=== PATIENT | female | born 1995 | race Caucasian/White ===

== ENCOUNTER 2021-10-10 15:09 | Inpatient (IN) ==
[2021-10-10] MEDS ORDERED: PIPERACILL/TAZOBAC CONSULT ACTIVE PRN (15:48)
[2021-10-10] MEDS ORDERED: SODIUM CHLORIDE 0.9% 1000ML 2,000 ML IV ONE (15:48)
[2021-10-10] MEDS ORDERED: PIPERACILLIN/TAZOBACTAM 4.5 GM/120 ML BAG IV ONE (15:48)
--- NOTE | 2021-10-10 15:51 | Emergency Department Note ---
Impression & Plan Sepsis, Pyosalpinx, Tachycardia, Abdominal abscess ED Provider Note NAME: ECHO MILLER AGE: 26 SEX: F : 1995 ARRIVES VIA: Walk-In INFORMANT: Patient ED PROVIDER(S): Dima Salazar DO CHIEF COMPLAINT: abdominal pain HPI: Patient is a 26-year-old female who presents the ER for worsening lower abdominal pain. She is postop from ovarian cyst removal at [place] about 4 weeks ago. She was seen by 2 weeks following this and found to have an abscess about 5 cm. She was placed on Zosyn and discharged on Augmentin. She finished up Augmentin 2 days ago. She started with fevers of 102 today as well as shaking chills. She denies any headache or change in vision. No chest pain or shortness of breath. No nausea vomiting or diarrhea. No dysuria urgency or frequency. No other exacerbating or remitting factors. Pain has been constant since the surgery but slightly worsened in the past 24 hours. Is an 8-9 out of 10. She does not want anything for pain. ROS: See above HPI for pertinent positives & negatives. A total of 10 systems reviewed and were otherwise negative. PAST MEDICAL HISTORY:See Below PAST SURGICAL HISTORY:See Below FAMILY HISTORY:See Below SOCIAL HISTORY:See Below HOME MEDICATIONS:See Below ALLERGIES:See Below VITALS:See Below PHYSICAL EXAMINATION: GENERAL: Sitting up in bed, alert, well appearing, well nourished, no distress, non-toxic EYE EXAM: normal conjunctiva. OROPHARYNX: no exudate, no erythema, lips, buccal mucosa, and tongue normal and mucous membranes are moist NECK: supple, no nuchal rigidity, no adenopathy, non-tender LUNGS: Clear to auscultation. Normal chest wall mechanics HEART: no murmurs, S1 normal and S2 normal ABDOMEN: abdomen soft, mild diffuse tenderness in the lower belly, port sites are clean and dry with exception of right lateral with a small protruding stitch normo-active bowel sounds, no masses, no rebound or guarding. UPPER EXTREMITIES: upper extremities are grossly normal. LOWER EXTREMITIES: No pitting edema. Cervical bilateral NEURO EXAM: Normal sensorium, cranial nerves II-XII grossly intact, normal speech, no gross weakness of arms, no gross weakness of legs. MEDICAL DECISION MAKING: Patient is a 26-year-old female with a past medical history of surgery 4 weeks ago who had a complication with an abscess which was 5 cm. Patient was discha rged on antibiotics. She finished antibiotics several days ago and fevers have recurred with worsening pain. IV was established blood was obtained. She was found to be tachycardic. Labs showed no significant leukocytosis or anemia. INR was unremarkable. BMP with a creatinine of 0.56. Lactate was normal. Troponin was negative. hCG was negative. UA was clean. COVID was negative. CT abdomen pelvis suggested a 3 cm abscess with questionable ovarian cyst. Discussed with who offered to evaluate the patient if she did not want to be transferred for IR. Patient would prefer not to be transferred to [place] or go to [facility] can stay here and be treated and if needed she was agreeable to an open surgery versus laparoscopic. Patient was obtained at bedside. She is given IV Zosyn vancomycin and 3 L IV fluids. She was admitted to the hospitalist as she was tachycardic with an obvious infection with CERTIFIED PEDIATRIC NURSE PRACTITIONER to consult. Triage Nursing notes reviewed. Limited review of prior medical records performed Vital Signs: reviewed and remarkable for no significant abnormalities Differential diagnosis: Differential diagnoses includes but is not limited to gastritis, peptic ulcer disease, GERD, gallbladder disease, pancreatitis, small bowel obstruction, acute coronary syndrome, pericarditis, ischemic bowel, irritable bowel disease, irritable bowel syndrome, appendicitis, diverticulitis, malignancy, hernia, urinary tract infection, torsion, /ectopic (if female), perforation, trauma, infectious. ER treatment provided: See below Diagnostics interpreted by me: ECG: Sinus rhythm rate of 114 Normal axis No PVCs T wave inversion V1 V2 QTC 446 Cardiac Monitoring: An order was placed for continuous cardiac monitoring. The monitor shows a rate of 122 with sinus rhythm. Laboratory studies: As stated above and show below. Imaging studies: CT abdomen pelvis as discussed above Ultrasound shows questionable abscess Consultation(s): Discussed with Dr. Basurto and hospitalist for further evaluation Procedures: none Critical Care: I have personally spent 32 minutes of critical care time in the direct management of this patient. This includes bedside care, interpretation of diagnostic studies, and testing, discussion with consultants, patient, and family members, and other required patient management activities. This 32 minutes is in excess of all separately billable procedures. Past Med/Surg History Medical History (Updated 10/10/21 @ 21:26 by Dima Salazar, DO) Migraine Surgical History (Updated 10/10/21 @ 19:45 by Ingrid Bryant PA-C) H/O ovarian cystectomy Hx of adenoidectomy Hx of tonsillectomy Family History (Updated 10/10/21 @ 19:46 by Ingrid Bryant PA-C) Denies family history of Diabetes Dyslipidemia Heart disease Lung disease Cancer Hypertension Social History (Updated 10/10/21 @ 19:46 by Ingrid Bryant PA-C) Smoking Status: Never smoker Second Hand Exposure: Yes; Do You Dip or Chew Tobacco: No; Hx Alcohol Use: No Hx Substance Use: No Current Living Situation: Significant Other current occupational status: employed Feels Safe at Home: Yes Allergies Allergies Allergy/AdvReac Type Severity Reaction Status Date / Time latex Allergy Intermediate Rash Verified 10/10/21 16:24 SURGICAL GLUE Allergy Intermediate RASH, Uncoded 10/10/21 16:24 BLISTERED SKIN Home Meds Home Medications Medication Instructions Recorded Confirmed acetaminophen 500 mg tablet 1,000 mg PO DIRECTED PRN 10/10/21 10/10/21 (Tylenol Extra Strength) Results & Data (ED) Vital Signs Vital Signs - 24 hr 10/10/21 15:12 10/10/21 15:46 10/10/21 15:55 Temperature 36.4 C L Temperature Source Temporal Artery Scan Pulse Rate 137 H 98 H 122 H Pulse Rate [Apical] 104 H Pulse Rate from SpO2 Sensor Pulse Rhythm [Apical] Regular Respiratory Rate 18 12 15 Respiratory Effort / Characteristics Non-Labored Spontaneous Non-Labored Respiratory Depth Normal Normal Respiratory Pattern Regular Blood Pressure 155/99 H Blood Pressure [Left Arm] 141/97 H Blood Pressure Mean 117 Blood Pressure Mean [Left Arm] 111 Blood Pressure Position Sitting Pulse Oximetry 97 99 Oxygen Delivery Method Room Air Room Air Sepsis Recent Fever Within 48 Hours No Sepsis New/Unexplained Change in Mental Status No Sepsis Action Taken by Nursing No Action Required 10/10/21 16:00 10/10/21 16:01 10/10/21 16:02 Temperature Temperature Source Pulse Rate 115 H 115 H Pulse Rate [Apical] 110 H Pulse Rate from SpO2 Sensor Pulse Rhythm [Apical] Respiratory Rate 14 12 13 Respiratory Effort / Characteristics Non-Labored Spontaneous Respiratory Depth Respiratory Pattern Blood Pressure 141/97 H Blood Pressure [Left Arm] 141/97 H Blood Pressure Mean 111 Blood Pressure Mean [Left Arm] 111 Blood Pressure Position Pulse Oximetry 98 Oxygen Delivery Method Sepsis Recent Fever Within 48 Hours Sepsis New/Unexplained Change in Mental Status Sepsis Action Taken by Nursing 10/10/21 16:15 10/10/21 16:27 10/10/21 16:30 Temperature Temperature Source Pulse Rate 127 H 107 H 112 H Pulse Rate [Apical] 102 H 112 H Pulse Rate from SpO2 Sensor 123 H 110 H 113 H Pulse Rhythm [Apical] Respiratory Rate 17 15 16 Respiratory Effort / Characteristics Non-Labored Respiratory Depth Respiratory Pattern Blood Pressure 135/96 143/97 H Blood Pressure [Left Arm] 135/96 147/113 H Blood Pressure Mean 109 112 Blood Pressure Mean [Left Arm] 109 124 Blood Pressure Position Pulse Oximetry 100 100 100 Oxygen Delivery Method Room Air Sepsis Recent Fever Within 48 Hours Sepsis New/Unexplained Change in Mental Status Sepsis Action Taken by Nursing 10/10/21 16:45 10/10/21 16:54 10/10/21 17:00 Temperature Temperature Source Pulse Rate 112 H Pulse Rate [Apical] 110 H 115 H Pulse Rate from SpO2 Sensor 113 H Pulse Rhythm [Apical] Regular Respiratory Rate 20 22 Respiratory Effort / Characteristics Non-Labored Spontaneous Respiratory Depth Normal Respiratory Pattern Blood Pressure 135/91 124/90 Blood Pressure [Left Arm] 147/113 H 147/113 H Blood Pressure Mean 105 101 Blood Pressure Mean [Left Arm] 124 124 Blood Pressure Position Pulse Oximetry 100 100 Oxygen Delivery Method Room Air Room Air Sepsis Recent Fever Within 48 Hours Sepsis New/Unexplained Change in Mental Status Sepsis Action Taken by Nursing 10/10/21 17:15 10/10/21 17:30 10/10/21 18:00 Temperature Temperature Source Pulse Rate 122 H 110 H 107 H Pulse Rate [Apical] 100 H Pulse Rate from SpO2 Sensor 127 H 113 H 109 H Pulse Rhythm [Apical] Respiratory Rate 10 L 19 10 L Respiratory Effort / Characteristics Non-Labored Non-Labored Spontaneous Respiratory Depth Respiratory Pattern Blood Pressure 147/113 H 143/91 H 139/79 Blood Pressure [Left Arm] 120/100 Blood Pressure Mean 124 108 99 Blood Pressure Mean [Left Arm] 106 Blood Pressure Position Pulse Oximetry 100 100 100 Oxygen Delivery Method Room Air Room Air Sepsis Recent Fever Within 48 Hours Sepsis New/Unexplained Change in Mental Status Sepsis Action Taken by Nursing 10/10/21 18:15 10/10/21 18:30 10/10/21 18:47 Temperature Temperature Source Pulse Rate 116 H 110 H Pulse Rate [Apical] Pulse Rate from SpO2 Sensor 116 H 110 H Pulse Rhythm [Apical] Respiratory Rate 15 19 17 Respiratory Effort / Characteristics Non-Labored Spontaneous Respiratory Depth Respiratory Pattern Blood Pressure 130/94 Blood Pressure [Left Arm] Blood Pressure Mean 106 Blood Pressure Mean [Left Arm] Blood Pressure Position Pulse Oximetry 99 98 99 Oxygen Delivery Method Room Air Sepsis Recent Fever Within 48 Hours Sepsis New/Unexplained Change in Mental Status Sepsis Action Taken by Nursing Laboratory Data Result diagrams: 10/10/21 15:59 10/10/21 15:59 Lab Results 10/10/21 10/10/21 10/10/21 Range/Units 15:46 15:46 15:59 WBC 10.53 (4.8-10.8) K/uL RBC 4.75 (4.2-5.4) M/uL Hgb 13.3 (12.0-16.0) g/dL POC Hgb (12.0-16.0) g/dl Hct 40.8 (37-47) % POC Hct (37-47) % MCV 85.9 (80-100) fL MCH 28.0 (25-34) pg MCHC 32.6 (32-36) g/dL RDW Std Deviation 45.2 (36.4-46.3) fL RDW Coeff of Denys 14.5 (11.5-14.5) % Plt Count 384 (130-400) K/uL MPV 9.0 (7.4-10.4) fL Immature Gran % (Auto) 0.3 % Neut % (Auto) 64.5 % Lymph % (Auto) 21.1 % [facility] % (Auto) 5.8 % Eos % (Auto) 7.9 % Baso % (Auto) 0.4 % Neut # (Auto) 6.80 H (1.4-6.5) K/uL Lymph # (Auto) 2.22 (1.2-3.4) K/uL [facility] # (Auto) 0.61 H (0.11-0.59) K/uL Eos # (Auto) 0.83 H (0-0.5) K/uL Baso # (Auto) 0.04 (0-0.2) K/uL Immature Gran # (Auto) 0.03 H (0.00-0.02) K/uL PT (9.0-12.0) Seconds INR (0.9-1.1) APTT (21.0-31.0) Seconds PTT Ratio POC Sodium (135-144) mmol/L Sodium (136-145) mmol/L POC Potassium (3.3-5.0) mmol/L Potassium (3.5-5.1) mmol/L POC Chloride (101-112) mmol/L Chloride (98-107) mmol/L Carbon Dioxide (21-32) mmol/L POC Total CO2 (24-31) mmol/L Anion Gap (3-11) POC Anion Gap (16-25) mmol/L POC BUN (7-18) mg/dl BUN (6-23) mg/dl Creatinine (0.6-1.2) mg/dl POC Creatinine (0.6-1.3) mg/dl Est Cr Clr Drug Dosing ml/min Est GFR ( Amer) ml/min Est GFR (Non-Af Amer) ml/min BUN/Creatinine Ratio (10-20) Glucose (70-99(Fasting)) mg/dl POC Glucose (other) (70-99) mg/dl Lactate (0.4-2.0) mmol/L Calcium (8.5-10.1) mg/dl POC Ioniz Calcium Tyrel (1.12-1.32) mmol/l Magnesium (1.7-2.4) mg/dl Total Bilirubin (0.2-1.0) mg/dl AST (13-39) U/L ALT (7-52) U/L Alkaline Phosphatase (34-104) U/L Troponin I High Sens (0-14) pg/ml Total Protein (6.0-8.3) gm/dl Albumin (3.4-5.0) gm/dl Globulin (2.5-4.0) gm/dl Albumin/Globulin Ratio (0.9-2) HCG, Qual (Negative) Urine Color Yellow Urine Appearance Clear (Clear) Urine pH 6.5 (4.5-7.5) Ur Specific Severance 1.007 (1.000-1.030) Urine Protein Negative (Negative) Urine Glucose (UA) Negative (Negative) Urine Ketones Negative (Negative) Urine Blood Trace H (Negative) Urine Nitrite Negative (Negative) Urine Bilirubin Negative (Negative) Urine Urobilinogen Negative (Negative) Ur Leukocyte Esterase Trace H (Negative) Urine WBC (Auto) 1-5 (0-5) /hpf Urine RBC (Auto) 0-4 (0-4) /hpf U Hyaline Cast (Auto) 1-5 (0-5) /lpf U Epithel Cells (Auto) >30 H (0-5) /lpf Urine Bacteria (Auto) Negative (Negative) Urine Test Cancelled SARS-CoV-2, RNA, NAAT (NEGATIVE) 10/10/21 10/10/21 10/10/21 Range/Units 15:59 15:59 16:15 WBC (4.8-10.8) K/uL RBC (4.2-5.4) M/uL Hgb (12.0-16.0) g/dL POC Hgb (12.0-16.0) g/dl Hct (37-47) % POC Hct (37-47) % MCV (80-100) fL MCH (25-34) pg MCHC (32-36) g/dL RDW Std Deviation (36.4-46.3) fL RDW Coeff of Denys (11.5-14.5) % Plt Count (130-400) K/uL MPV (7.4-10.4) fL Immature Gran % (Auto) % Neut % (Auto) % Lymph % (Auto) % [facility] % (Auto) % Eos % (Auto) % Baso % (Auto) % Neut # (Auto) (1.4-6.5) K/uL Lymph # (Auto) (1.2-3.4) K/uL [facility] # (Auto) (0.11-0.59) K/uL Eos # (Auto) (0-0.5) K/uL Baso # (Auto) (0-0.2) K/uL Immature Gran # (Auto) (0.00-0.02) K/uL PT 10.3 (9.0-12.0) Seconds INR 1.0 (0.9-1.1) APTT 25.3 (21.0-31.0) Seconds PTT Ratio 0.9 POC Sodium (135-144) mmol/L Sodium 138 (136-145) mmol/L POC Potassium (3.3-5.0) mmol/L Potassium 3.6 (3.5-5.1) mmol/L POC Chloride (101-112) mmol/L Chloride 105 (98-107) mmol/L Carbon Dioxide 24 (21-32) mmol/L POC Total CO2 (24-31) mmol/L Anion Gap 9 (3-11) POC Anion Gap (16-25) mmol/L POC BUN (7-18) mg/dl BUN 7 (6-23) mg/dl Creatinine 0.56 L (0.6-1.2) mg/dl POC Creatinine (0.6-1.3) mg/dl Est Cr Clr Drug Dosing 143.8 ml/min Est GFR ( Amer) > 150.0 ml/min Est GFR (Non-Af Amer) 129.6 ml/min BUN/Creatinine Ratio 12.5 (10-20) Glucose 78 (70-99(Fasting)) mg/dl POC Glucose (other) (70-99) mg/dl Lactate 1.1 (0.4-2.0) mmol/L Calcium 9.6 (8.5-10.1) mg/dl POC Ioniz Calcium Tyrel (1.12-1.32) mmol/l Magnesium 1.8 (1.7-2.4) mg/dl Total Bilirubin 0.4 (0.2-1.0) mg/dl AST 22 (13-39) U/L ALT 36 (7-52) U/L Alkaline Phosphatase 74 (34-104) U/L Troponin I High Sens 4.0 (0-14) pg/ml Total Protein 7.3 (6.0-8.3) gm/dl Albumin 4.5 (3.4-5.0) gm/dl Globulin 2.8 (2.5-4.0) gm/dl Albumin/Globulin Ratio 1.6 (0.9-2) HCG, Qual (Negative) Urine Color Urine Appearance (Clear) Urine pH (4.5-7.5) Ur Specific Severance (1.000-1.030) Urine Protein (Negative) Urine Glucose (UA) (Negative) Urine Ketones (Negative) Urine Blood (Negative) Urine Nitrite (Negative) Urine Bilirubin (Negative) Urine Urobilinogen (Negative) Ur Leukocyte Esterase (Negative) Urine WBC (Auto) (0-5) /hpf Urine RBC (Auto) (0-4) /hpf U Hyaline Cast (Auto) (0-5) /lpf U Epithel Cells (Auto) (0-5) /lpf Urine Bacteria (Auto) (Negative) Urine Test SARS-CoV-2, RNA, NAAT (NEGATIVE) 10/10/21 10/10/21 10/10/21 Range/Units 16:16 16:24 16:56 WBC (4.8-10.8) K/uL RBC (4.2-5.4) M/uL Hgb (12.0-16.0) g/dL POC Hgb 12.9 (12.0-16.0) g/dl Hct (37-47) % POC Hct 38 (37-47) % MCV (80-100) fL MCH (25-34) pg MCHC (32-36) g/dL RDW Std Deviation (36.4-46.3) fL RDW Coeff of Denys (11.5-14.5) % Plt Count (130-400) K/uL MPV (7.4-10.4) fL Immature Gran % (Auto) % Neut % (Auto) % Lymph % (Auto) % [facility] % (Auto) % Eos % (Auto) % Baso % (Auto) % Neut # (Auto) (1.4-6.5) K/uL Lymph # (Auto) (1.2-3.4) K/uL [facility] # (Auto) (0.11-0.59) K/uL Eos # (Auto) (0-0.5) K/uL Baso # (Auto) (0-0.2) K/uL Immature Gran # (Auto) (0.00-0.02) K/uL PT (9.0-12.0) Seconds INR (0.9-1.1) APTT (21.0-31.0) Seconds PTT Ratio POC Sodium 140 (135-144) mmol/L Sodium (136-145) mmol/L POC Potassium 3.5 (3.3-5.0) mmol/L Potassium (3.5-5.1) mmol/L POC Chloride 105 (101-112) mmol/L Chloride (98-107) mmol/L Carbon Dioxide (21-32) mmol/L POC Total CO2 22 L (24-31) mmol/L Anion Gap (3-11) POC Anion Gap 17.0 (16-25) mmol/L POC BUN 6 L (7-18) mg/dl BUN (6-23) mg/dl Creatinine (0.6-1.2) mg/dl POC Creatinine 0.5 L (0.6-1.3) mg/dl Est Cr Clr Drug Dosing ml/min Est GFR ( Amer) ml/min Est GFR (Non-Af Amer) ml/min BUN/Creatinine Ratio (10-20) Glucose (70-99(Fasting)) mg/dl POC Glucose (other) 81 (70-99) mg/dl Lactate (0.4-2.0) mmol/L Calcium (8.5-10.1) mg/dl POC Ioniz Calcium Tyrel 1.20 (1.12-1.32) mmol/l Magnesium (1.7-2.4) mg/dl Total Bilirubin (0.2-1.0) mg/dl AST (13-39) U/L ALT (7-52) U/L Alkaline Phosphatase (34-104) U/L Troponin I High Sens (0-14) pg/ml Total Protein (6.0-8.3) gm/dl Albumin (3.4-5.0) gm/dl Globulin (2.5-4.0) gm/dl Albumin/Globulin Ratio (0.9-2) HCG, Qual Negative (Negative) Urine Color Urine Appearance (Clear) Urine pH (4.5-7.5) Ur Specific Severance (1.000-1.030) Urine Protein (Negative) Urine Glucose (UA) (Negative) Urine Ketones (Negative) Urine Blood (Negative) Urine Nitrite (Negative) Urine Bilirubin (Negative) Urine Urobilinogen (Negative) Ur Leukocyte Esterase (Negative) Urine WBC (Auto) (0-5) /hpf Urine RBC (Auto) (0-4) /hpf U Hyaline Cast (Auto) (0-5) /lpf U Epithel Cells (Auto) (0-5) /lpf Urine Bacteria (Auto) (Negative) Urine Test SARS-CoV-2, RNA, NAAT NEGATIVE (NEGATIVE) Administered Medications Discontinued Medications Sodium Chloride (Nss 1000ml) 2,000 mls @ 999 mls/hr IV .Q2H1M ONE Stop: 10/10/21 17:48 Last Admin: 10/10/21 16:28 Dose: 999 mls/hr Documented by: [id number] Piperacillin Sod/Tazobactam Sod (Zosyn) 4.5 gm in 120 mls @ 240 mls/hr IV NOW ONE Stop: 10/10/21 16:17 Last Infusion: 10/10/21 17:54 Dose: 0 mls/hr Documented by: [id number] Admin: 10/10/21 17:11 Dose: 240 mls/hr Documented by: [id number] Vancomycin HCl 1,250 mg/ (Sodium Chloride) 525 mls @ 200 mls/hr IV NOW ONE Stop: 10/10/21 20:53 Last Admin: 10/10/21 18:50 Dose: 200 mls/hr Documented by: [id number] Ioversol (Optiray 320 100ml) 94 ml IV ONCE ONE Stop: 10/10/21 16:47 Last Admin: 10/10/21 16:47 Dose: 94 ml Documented by: [id number] Imaging Data Radiologist's Impression: Abdomen/Pelvis CT 10/10/21 15:[address] WITH IV CONTRAST CT DOSE: 419.04 mGy.cm HISTORY: Acute fever with recent pelvic surgery. post op ovarian cyst removal febrile worsening omid TECHNIQUE: Multiaxial CT images of the abdomen and pelvis were performed following the IV administration of 94 cc of Optiray, A dose lowering technique was utilized adhering to the principles of ALARA. COMPARISON STUDY: None. FINDINGS: There is no acute process identified within the imaged lower chest. No pneumatosis or pneumoperitoneum identified. Unremarkable spleen, pancreas, adrenal glands, gallbladder and liver. There is patency of the hepatic and portal veins. Symmetric enhancement of the kidneys. Mild right-sided pelviectasis with mild dilation of the bilateral ureters. No didier hydronephrosis. Mild urinary bladder distention. Unremarkable uterus. There is heterogeneous enhancement within the left adnexal tissues and left ovary. There is suggestion of a probable left adnexal abscess measuring up to 2.8 cm on image 352 measuring up to 3.5 cm in length on the sagittal images. This extends into the pelvic cul-de-sac. Cystic serpiginous structure of the right adnexum measures over 8 cm in greatest dimension. Aorta and IVC are unremarkable. There is no lymphadenopathy identified. Mild inflammatory stranding of the pelvis. No bowel obstruction. Mild rectal wall thickening is likely reactive. Noninflamed appendix. Unremarkable soft tissues. There is no acute fracture identified. IMPRESSION: 1. Heterogeneous enhancement of the left adnexum with probable left adnexal/pelvic cul-de-sac multilocular abscess measuring over 3 cm. 2. Serpiginous cystic structure of the right adnexum measuring over 8 cm in greatest dimension is suggestive of a dilated fluid-filled fallopian tube. Hydrosalpinx versus pyosalpinx considered. The constellation of findings should be correlated with a follow-up pelvic ultrasound. 3. No bowel obstruction or pneumoperitoneum. 4. Noninflamed appendix. ACT 112: Negative or not required by law. The above report was generated using voice recognition software. It may contain grammatical, syntax or spelling errors. Electronically signed by: Saud Muse M.D. 10/10/2021 5:06 PM Chest X-Ray 10/10/21 15:31 XR chest 1V portable HISTORY: 26 years-old Female SEPSIS acute sepsis COMPARISON: None TECHNIQUE: Portable AP view of the chest FINDINGS: The cardiac mediastinal and hilar silhouettes are within normal limits. There is no pneumothorax, pleural effusion, airspace consolidation or overt pulmonary edema. The bones of the chest appear grossly intact. IMPRESSION: No acute process. ACT 112: Negative or not required by law. The above report was generated using voice recognition software. It may contain grammatical, syntax or spelling errors. Electronically signed by: Saud Muse M.D. 10/10/2021 4:16 PM Pelvis Ultrasound 10/10/21 18:16 PELVIC ULTRASOUND CLINICAL HISTORY: Left ovarian cyst removal one month ago. ?abscess COMPARISON STUDY: CT of the abdomen and pelvis October 10, 2021 at 4:44 PM. TECHNIQUE: Transabdominal and transvaginal sonography of the pelvis was performed. FINDINGS: Uterus measures 8.2 x 3 x 3.8 cm. Endometrium measures 4 mm in thickness. Normal-appearing right ovary is not identified. Note is made of a 7.2 x 5.7 x 5.3 cm cystic focus within the right adnexa which corresponds to the finding on CT performed earlier today. This could reflect a dilated right fallopian tube or septated right ovarian cyst. The largest component measures 5.3 cm. Normal-appearing left ovary is not visualized. Differentiation between the left ovary and possible abscess is difficult on this exam. The left ovary measures approximately 4.2 x 2.7 x 3 cm. Adjacent complex focus is noted which favors a multiloculated abscess with the largest component measuring 3 cm. IMPRESSION: 1. Complex hypoechoic abnormality within the left adnexa. Differentiation between the left ovary and possible abscess is difficult on this exam and better depicted on CT performed earlier today. The findings favor a multiloculated left adnexal abscess, measuring approximately 3 cm. Short-term sonographic follow-up is recommended. 2. 7.2 x 5.7 x 5.3 cm cystic focus within the right adnexa. This could reflect a dilated right fallopian tube or septated right ovarian cyst. ACT 112: Negative or not required by law. Electronically signed by: Mann Nolasco M.D. 10/10/2021 9:05 PM Discharge Plan Visit Data Chief Complaint: Infection Stated Complaint: SHAKEY,FEVER, ABD PAIN HAD INFECTION POSSIBLY BACK ED Provider: Dima Salazar Discharge Problem: Sepsis, Pyosalpinx, Tachycardia, Abdominal abscess Patient Disposition: Admitted As Inpatient Discharge Instructions Interventions: ED Discharge Assessment Last Done: 10/10/21 20:01
[2021-10-10 16:11] LABS: Appearance Urine Clear (Clear); Bacteria Urine Automated Negative (Negative); Bilirubin Urine Negative (Negative); Blood Urine Trace (Negative); Color Urine Yellow; Epithelial Cell Urine Auto >30 /lpf (0-5); Glucose Urine UA Negative (Negative); Ketones Urine Negative (Negative); Leukocyte Esterase Urine Trace (Negative); Nitrite Urine Negative (Negative); Protein Urine Negative (Negative); RBC Urine Automated 0-4 /hpf (0-4); Specific Gravity Urine 1.007 (1.000-1.030); Urobilinogen Urine Negative (Negative); pH Urine 6.5 (4.5-7.5)
--- NOTE | 2021-10-10 16:18 | XRay Report ---
XR chest 1V portable HISTORY: 26 years-old Female SEPSIS acute sepsis COMPARISON: None TECHNIQUE: Portable AP view of the chest FINDINGS: The cardiac mediastinal and hilar silhouettes are within normal limits. There is no pneumothorax, ple ural effusion, airspace consolidation or overt pulmonary edema. The bones of the chest appear grossly intact. IMPRESSION: No acute process. ACT 112: Negative or not required by law. The above report was generated using voice recognition software. It may contain grammatical, syntax o r spelling errors. Electronically signed by: Saud Muse M.D. 10/10/2021 4:16 PM
[2021-10-10 16:25] LABS: Basophils # (auto) 0.04 K/uL (0-0.2); Basophils % (auto) 0.4 %; Eosinophils # (auto) 0.83 K/uL (0-0.5); Eosinophils % (auto) 7.9 %; Hematocrit (blood only) 40.8 % (37-47); Hemoglobin 13.3 g/dL (12.0-16.0); Immature Granulocytes # (auto) 0.03 K/uL (0.00-0.02); Immature Granulocytes % (auto) 0.3 %; Lymphocytes # (auto) 2.22 K/uL (1.2-3.4); Lymphocytes % (auto) 21.1 %; Mean Corpuscular Hgb Conc 32.6 g/dL (32-36); Mean Corpuscular Volume 85.9 fL (80-100); Monocytes # (auto) 0.61 K/uL (0.11-0.59); Monocytes % (auto) 5.8 %; Neutrophils % (auto) 64.5 %; Platelet Count 384 K/uL (130-400); RDW Coefficient of Variation 14.5 % (11.5-14.5); RDW Standard Deviation 45.2 fL (36.4-46.3); Red Blood Count 4.75 M/uL (4.2-5.4); White Blood Count 10.53 K/uL (4.8-10.8)
[2021-10-10 16:29] LABS: iSTAT Creatinine 0.5 mg/dl (0.6-1.3); iSTAT Hemoglobin 12.9 g/dl (12.0-16.0); iSTAT Ionized Calcium 1.2 mmol/l (1.12-1.32); iSTAT Potassium 3.5 mmol/L (3.3-5.0)
[2021-10-10] MEDS ORDERED: OPTIRAY 320 100ml IV ONE (16:46)
[2021-10-10 16:51] LABS: Alanine Aminotransferase 36 U/L (7-52); Albumin Globulin Ratio 1.6 (0.9-2); Albumin Level 4.5 gm/dl (3.4-5.0); Alkaline Phosphatase 74 U/L (34-104); Anion Gap 9 (3-11); Aspartate Aminotransferase 22 U/L (13-39); BUN Creatinine Ratio 12.5 (10-20); Bilirubin,Total 0.4 mg/dl (0.2-1.0); Blood Urea Nitrogen 7 mg/dl (6-23); Calcium 9.6 mg/dl (8.5-10.1); Carbon Dioxide 24 mmol/L (21-32); Chloride 105 mmol/L (98-107); Creatinine Clr Calc Pharmacy 143.8 ml/min; Est GFR (African American) > 150.0 ml/min; Est GFR (Non-African American) 129.6 ml/min; Globulin 2.8 gm/dl (2.5-4.0); Glucose 78 mg/dl (70-99(Fasting)); Magnesium 1.8 mg/dl (1.7-2.4); Potassium 3.6 mmol/L (3.5-5.1); Sodium 138 mmol/L (136-145); Total Protein 7.3 gm/dl (6.0-8.3)
[2021-10-10 17:02] LABS: Partial Thromboplastin Ratio 0.9; Partial Thromboplastin Time 25.3 Seconds (21.0-31.0); Prothrombin Time 10.3 Seconds (9.0-12.0)
--- NOTE | 2021-10-10 17:08 | CT Scan Report ---
ABDOMEN AND PELVIS CT WITH IV CONTRAST CT DOSE: 419.04 mGy.cm HISTORY: Acute fever with recent pelvic surgery. post op ovarian cyst removal febrile worsening omid TECHNIQUE: Multiaxial CT images of the abdomen and pelvis were performed following the IV administrat ion of 94 cc of Optiray, A dose lowering technique was utilized adhering to the principles of ALARA. COMPARISON STUDY: None. FINDINGS: There is no acute process identified within the imaged lower chest. No pneumatosis or pneum operitoneum identified. Unremarkable spleen, pancreas, adrenal glands, gallbladder and liver. There i s patency of the hepatic and portal veins. Symmetric enhancement of the kidneys. Mild right-sided pelviectasis with mild dilation of the bilater al ureters. No didier hydronephrosis. Mild urinary bladder distention. Unremarkable uterus. There is h eterogeneous enhancement within the left adnexal tissues and left ovary. There is suggestion of a pro bable left adnexal abscess measuring up to 2.8 cm on image 352 measuring up to 3.5 cm in length on th e sagittal images. This extends into the pelvic cul-de-sac. Cystic serpiginous structure of the right adnexum measures over 8 cm in greatest dimension. Aorta and IVC are unremarkable. There is no lympha denopathy identified. Mild inflammatory stranding of the pelvis. No bowel obstruction. Mild rectal wall thickening is likely reactive. Noninflamed appendix. Unremarka ble soft tissues. There is no acute fracture identified. IMPRESSION: 1. Heterogeneous enhancement of the left adnexum with probable left adnexal/pelvic cul-de-sac multilo cular abscess measuring over 3 cm. 2. Serpiginous cystic structure of the right adnexum measuring over 8 cm in greatest dimension is sug gestive of a dilated fluid-filled fallopian tube. Hydrosalpinx versus pyosalpinx considered. The cons tellation of findings should be correlated with a follow-up pelvic ultrasound. 3. No bowel obstruction or pneumoperitoneum. 4. Noninflamed appendix. ACT 112: Negative or not required by law. The above report was generated using voice recognition software. It may contain grammatical, syntax o r spelling errors. Electronically signed by: Saud Muse M.D. 10/10/2021 5:06 PM
[2021-10-10 17:27] LABS: Pregnancy Test, Serum Negative (Negative)
--- NOTE | 2021-10-10 18:07 | Electrocardiogram Report ---
Test Reason : Blood Pressure : / mmHG Vent. Rate : 114 BPM Atrial Rate : 114 BPM P-R Int : 144 ms QRS Dur : 086 ms QT Int : 324 ms P-R-T Axes : 052 039 043 degrees QTc Int : 446 ms Sinus tachycardia Possible Left atrial enlargement Borderline ECG No previous ECGs available Confirmed by Eduardo Hair ([id number]) on 10/10/2021 6:06:51 PM Referred By: ED Confirmed By:Milton Hair
[2021-10-10] MEDS ORDERED: VANCOMYCIN CONSULT ACTIVE PRN (18:16)
[2021-10-10] MEDS ORDERED: VANCOMYCIN HCL 1,250 MG in SODIUM CHLORIDE 0.9% 500 ML IV ONE (18:16)
--- NOTE | 2021-10-10 18:50 | History & Physical Report ---
Date of Service October 10, 2021 Assessment & Plan (1) H/O ovarian cystectomy: (2) Sepsis: (3) Pyosalpinx: (4) Tachycardia: Plan: - Admit to tele - Consult rn document improvement with hx of ovarian cystectomy and recurrent abscess - Discussed with Dr. Basurto - no current indication for surgery- will allow diet tonight and make NPO at midnight in the event needs for surgical procedure changes tomorrow - Imaging reviewed: 1. Heterogeneous enhancement of the left adnexum with pro bable left adnexal/pelvic cul-de-sac multilocular abscess measuring over 3 cm. 2. Serpiginous cystic structure of the right adnexum measuring over 8 cm in greatest dimension is suggestive of a dilated fluid-filled fallopian tube. Hydrosalpinx versus pyosalpinx considered. The constellation of findings should be correlated with a follow-up pelvic ultrasound. - Lactate 1.1 initially, follow repeat - Recently completed course of Augmentin as outpatient, IV abx with zosyn and vancomycin for now - Follow blood cx x 2, urine culture - BP, HR elevated currently, monitor - Given 2 L NSS in the ER, will give another L fluids with LR - Continue IV vanc and zosyn - during my visit the pt stated IV is very painful, stopped infusion of Vanc, discussed with nursing to place new IV site to avoid infiltrated IV site and resume vanc after new site obtained. - Counseled on use of control options at bedside as currently does not use anything and is sexually active, hcg is negative on admission. DVT ppx: -teds, heparin subq CODE: FULL code Dispo: From home, likely to remain in the hospital x 1-2 days History of Present Illness Chief Complaint: Abdominal pain Primary Care Provider: Nilson Marie This is a 26 yo F, , without significant PMHx other than left ovarian cystectomy which was done emergently on September 10 due to presentation with abdominal pain and CT findings on abdomen. She was admitted for several days at [facility] where she was discharged home. On September 17 she represented to the [place] ER due to worsening abdominal pain, nausea, vomiting, fever and chills and reports that she was admitted for another 4 to 5 days and describes what may possibly have been a bowel obstruction. Upon discharge she was sent home on 14 days of Augmentin 875 twice daily, prednisone taper, and Protonix which she finished on October 06. At that point she was told it was "normal" to have an abscess, and feels that she did not receive the best care. Over the past 4 days she has experienced worsening abdominal pain, lethargy, poor appetite, last bowel movement was 2 days ago, and fever of 102. She was working earlier today at [employer] and reports elevated blood pressure and fever, therefore came to the [facility] ER. Her pain is fairly well controlled at present if Tylenol alone, but is difficult for her to sit up independently in bed. She feels the pain is worse in her right side compared to her left side of the abdomen. Currently she does not have a fever. Her boyfriend is present at bedside and supports the history. She lives with her boyfriend, and 3 children, ages 6, 4 and 2. The mother of the children does not live within the home and is only allowed scheduled court visits. Pt is , is currently sexually active and does not use any control. Negative screen on admission. No smoking or alcohol use. Allergies Allergy/AdvReac Type Severity Reaction Status Date / Time latex Allergy Intermediate Rash Verified 10/10/21 16:24 SURGICAL GLUE Allergy Intermediate RASH, Uncoded 10/10/21 16:24 BLISTERED SKIN Home Medications Medication Instructions Recorded Confirmed Type acetaminophen 500 mg tablet 1,000 mg PO DIRECTED PRN 10/10/21 10/10/21 History (Tylenol Extra Strength) Past Med/Surg History Medical History (Updated 10/10/21 @ 21:49 by Eun Basurto MD) Migraine Surgical History (Updated 10/10/21 @ 19:45 by Ingrid Bryant PA-C) H/O ovarian cystectomy Hx of adenoidectomy Hx of tonsillectomy Family History (Updated 10/10/21 @ 19:46 by Ingrid Bryant PA-C) Denies family history of Diabetes Dyslipidemia Heart disease Lung disease Cancer Hypertension Social History (Updated 10/10/21 @ 19:46 by Ingrid Bryant PA-C) Smoking Status: Never smoker Second Hand Exposure: Yes; Do You Dip or Chew Tobacco: No; Hx Alcohol Use: No Hx Substance Use: No Current Living Situation: Significant Other current occupational status: employed Feels Safe at Home: Yes Review of Systems Review of Systems: Constitutional: No fever, sweats or chills Eyes: No diplopia, no worsening or blurred vision ENT: normal hearing, no trouble swallowing Respiratory: No cough, sputum, dyspnea at rest or on exertion Cardiovascular: No chest pain, tightness or palpitations Abdomen: As per HPI, + moderate R and Left lower quadrant pain,+nausea, no vomiting, diarrhea, last BM was 2 days ago Musculoskeletal: No joint pain, calf pain, swelling Neurologic: No weakness, numbness/tingling, or balance problems Psychiatric: No anxiety or depression Skin: No rash or itch Physical Exam Physical Exam: General: awake, alert, no apparent distress Head: Normocephalic, atraumatic ENT: PERRL, EOMI, no pharyngeal exudate, mucous membranes moist Chest: Clear to auscultation, on room air, no adventitious breath sounds Cardiac: +Sinus tachycardia with HR in 110s at bedside, no murmur, no JVD, normal peripheral pulses, good capillary refill Abdominal: NABS x 4 quadrants, soft, nondistended, +tender to palpation in RLQ moreso than LLQ to deep palpation, no rebound or guarding Extremities: Normal inspection, no peripheral edema or erythema, calfs nontender to palpation Psych: Normal mood and affect Neuro: AAO x 3, strength intact bilaterally and rated 5/5, no motor deficits, speech is clear, no peripheral sensory deficits Results & Data Results & Data ([facility]) Vital Signs (Past 12 Hours) Vital Signs Temp Pulse Pulse Resp BP BP Pulse Ox 10/10/21 17:15 122 H 10 L 147/113 H 100 10/10/21 17:00 112 H 115 H 22 124/90 147/113 H 100 10/10/21 16:54 135/91 10/10/21 16:45 110 H 20 147/113 H 100 10/10/21 16:30 112 H 112 H 16 143/97 H 147/113 H 100 10/10/21 16:27 107 H 15 135/96 100 10/10/21 16:15 127 H 102 H 17 135/96 100 10/10/21 16:02 115 H 13 141/97 H 10/10/21 16:01 110 H 12 141/97 H 98 10/10/21 16:00 115 H 14 10/10/21 15:55 122 H 15 10/10/21 15:46 98 H 104 H 12 141/97 H 99 10/10/21 15:12 36.4 C L 137 H 18 155/99 H 97 Laboratory Results 10/10/21 16:20 Aerobic Blood Culture - Pending Blood Anaerobic Blood Culture - Pending 10/10/21 15:59 Aerobic Blood Culture - Pending Blood Anaerobic Blood Culture - Pending 10/10/21 10/10/21 10/10/21 19:08 16:56 16:24 WBC RBC Hgb POC Hgb Hct POC Hct MCV MCH MCHC RDW Std Deviation RDW Coeff of Denys Plt Count MPV Immature Gran % (Auto) Neut % (Auto) Lymph % (Auto) [place] % (Auto) Eos % (Auto) Baso % (Auto) Neut # (Auto) Lymph # (Auto) [place] # (Auto) Eos # (Auto) Baso # (Auto) Immature Gran # (Auto) PT INR APTT PTT Ratio POC Sodium Sodium POC Potassium Potassium POC Chloride Chloride Carbon Dioxide POC Total CO2 Anion Gap POC Anion Gap POC BUN BUN Creatinine POC Creatinine Est Cr Clr Drug Dosing Est GFR ( Amer) Est GFR (Non-Af Amer) BUN/Creatinine Ratio Glucose POC Glucose (other) Lactate 0.8 Calcium POC Ioniz Calcium Tyrel Magnesium Total Bilirubin AST ALT Alkaline Phosphatase Troponin I High Sens Total Protein Albumin Globulin Albumin/Globulin Ratio HCG, Qual Negative Urine Color Urine Appearance Urine pH Ur Specific [place] Urine Protein Urine Glucose (UA) Urine Ketones Urine Blood Urine Nitrite Urine Bilirubin Urine Urobilinogen Ur Leukocyte Esterase Urine WBC (Auto) Urine RBC (Auto) U Hyaline Cast (Auto) U Epithel Cells (Auto) Urine Bacteria (Auto) Urine Test SARS-CoV-2, RNA, NAAT NEGATIVE 10/10/21 10/10/21 10/10/21 16:16 16:15 15:59 WBC RBC Hgb POC Hgb 12.9 Hct POC Hct 38 MCV MCH MCHC RDW Std Deviation RDW Coeff of Denys Plt Count MPV Immature Gran % (Auto) Neut % (Auto) Lymph % (Auto) [place] % (Auto) Eos % (Auto) Baso % (Auto) Neut # (Auto) Lymph # (Auto) [place] # (Auto) Eos # (Auto) Baso # (Auto) Immature Gran # (Auto) PT INR APTT PTT Ratio POC Sodium 140 Sodium 138 POC Potassium 3.5 Potassium 3.6 POC Chloride 105 Chloride 105 Carbon Dioxide 24 POC Total CO2 22 L Anion Gap 9 POC Anion Gap 17.0 POC BUN 6 L BUN 7 Creatinine 0.56 L POC Creatinine 0.5 L Est Cr Clr Drug Dosing 143.8 Est GFR ( Amer) > 150.0 Est GFR (Non-Af Amer) 129.6 BUN/Creatinine Ratio 12.5 Glucose 78 POC Glucose (other) 81 Lactate 1.1 Calcium 9.6 POC Ioniz Calcium Tyrel 1.20 Magnesium 1.8 Total Bilirubin 0.4 AST 22 ALT 36 Alkaline Phosphatase 74 Troponin I High Sens 4.0 Total Protein 7.3 Albumin 4.5 Globulin 2.8 Albumin/Globulin Ratio 1.6 HCG, Qual Urine Color Urine Appearance Urine pH Ur Specific [place] Urine Protein Urine Glucose (UA) Urine Ketones Urine Blood Urine Nitrite Urine Bilirubin Urine Urobilinogen Ur Leukocyte Esterase Urine WBC (Auto) Urine RBC (Auto) U Hyaline Cast (Auto) U Epithel Cells (Auto) Urine Bacteria (Auto) Urine Test SARS-CoV-2, RNA, NAAT 10/10/21 10/10/21 10/10/21 15:59 15:59 15:46 WBC 10.53 RBC 4.75 Hgb 13.3 POC Hgb Hct 40.8 POC Hct MCV 85.9 MCH 28.0 MCHC 32.6 RDW Std Deviation 45.2 RDW Coeff of Denys 14.5 Plt Count 384 MPV 9.0 Immature Gran % (Auto) 0.3 Neut % (Auto) 64.5 Lymph % (Auto) 21.1 [place] % (Auto) 5.8 Eos % (Auto) 7.9 Baso % (Auto) 0.4 Neut # (Auto) 6.80 H Lymph # (Auto) 2.22 [place] # (Auto) 0.61 H Eos # (Auto) 0.83 H Baso # (Auto) 0.04 Immature Gran # (Auto) 0.03 H PT 10.3 INR 1.0 APTT 25.3 PTT Ratio 0.9 POC Sodium Sodium POC Potassium Potassium POC Chloride Chloride Carbon Dioxide POC Total CO2 Anion Gap POC Anion Gap POC BUN BUN Creatinine POC Creatinine Est Cr Clr Drug Dosing Est GFR ( Amer) Est GFR (Non-Af Amer) BUN/Creatinine Ratio Glucose POC Glucose (other) Lactate Calcium POC Ioniz Calcium Tyrel Magnesium Total Bilirubin AST ALT Alkaline Phosphatase Troponin I High Sens Total Protein Albumin Globulin Albumin/Globulin Ratio HCG, Qual Urine Color Urine Appearance Urine pH Ur Specific [place] Urine Protein Urine Glucose (UA) Urine Ketones Urine Blood Urine Nitrite Urine Bilirubin Urine Urobilinogen Ur Leukocyte Esterase Urine WBC (Auto) Urine RBC (Auto) U Hyaline Cast (Auto) U Epithel Cells (Auto) Urine Bacteria (Auto) Urine Test Cancelled SARS-CoV-2, RNA, NAAT 10/10/21 15:46 WBC RBC Hgb POC Hgb Hct POC Hct MCV MCH MCHC RDW Std Deviation RDW Coeff of Denys Plt Count MPV Immature Gran % (Auto) Neut % (Auto) Lymph % (Auto) [place] % (Auto) Eos % (Auto) Baso % (Auto) Neut # (Auto) Lymph # (Auto) [place] # (Auto) Eos # (Auto) Baso # (Auto) Immature Gran # (Auto) PT INR APTT PTT Ratio POC Sodium Sodium POC Potassium Potassium POC Chloride Chloride Carbon Dioxide POC Total CO2 Anion Gap POC Anion Gap POC BUN BUN Creatinine POC Creatinine Est Cr Clr Drug Dosing Est GFR ( Amer) Est GFR (Non-Af Amer) BUN/Creatinine Ratio Glucose POC Glucose (other) Lactate Calcium POC Ioniz Calcium Tyrel Magnesium Total Bilirubin AST ALT Alkaline Phosphatase Troponin I High Sens Total Protein Albumin Globulin Albumin/Globulin Ratio HCG, Qual Urine Color Yellow Urine Appearance Clear Urine pH 6.5 Ur Specific [place] 1.007 Urine Protein Negative Urine Glucose (UA) Negative Urine Ketones Negative Urine Blood Trace H Urine Nitrite Negative Urine Bilirubin Negative Urine Urobilinogen Negative Ur Leukocyte Esterase Trace H Urine WBC (Auto) 1-5 Urine RBC (Auto) 0-4 U Hyaline Cast (Auto) 1-5 U Epithel Cells (Auto) >30 H Urine Bacteria (Auto) Negative Urine Test SARS-CoV-2, RNA, NAAT Diagnostic Findings Abdomen/Pelvis CT 10/10/21 15:[address] WITH IV CONTRAST CT DOSE: 419.04 mGy.cm HISTORY: Acute fever with recent pelvic surgery. post op ovarian cyst removal febrile worsening omid TECHNIQUE: Multiaxial CT images of the abdomen and pelvis were performed following the IV administration of 94 cc of Optiray, A dose lowering technique was utilized adhering to the principles of ALARA. COMPARISON STUDY: None. FINDINGS: There is no acute process identified within the imaged lower chest. No pneumatosis or pneumoperitoneum identified. Unremarkable spleen, pancreas, adrenal glands, gallbladder and liver. There is patency of the hepatic and portal veins. Symmetric enhancement of the kidneys. Mild right-sided pelviectasis with mild dilation of the bilateral ureters. No didier hydronephrosis. Mild urinary bladder distention. Unremarkable uterus. There is heterogeneous enhancement within the left adnexal tissues and left ovary. There is suggestion of a probable left adnexal abscess measuring up to 2.8 cm on image 352 measuring up to 3.5 cm in length on the sagittal images. This extends into the pelvic cul-de-sac. Cystic serpiginous structure of the right adnexum measures over 8 cm in greatest dimension. Aorta and IVC are unremarkable. There is no lymphadenopathy identified. Mild inflammatory stranding of the pelvis. No bowel obstruction. Mild rectal wall thickening is likely reactive. Noninflamed appendix. Unremarkable soft tissues. There is no acute fracture identified. IMPRESSION: 1. Heterogeneous enhancement of the left adnexum with probable left adnexal/pelvic cul-de-sac multilocular abscess measuring over 3 cm. 2. Serpiginous cystic structure of the right adnexum measuring over 8 cm in greatest dimension is suggestive of a dilated fluid-filled fallopian tube. Hydrosalpinx versus pyosalpinx considered. The constellation of findings should be correlated with a follow-up pelvic ultrasound. 3. No bowel obstruction or pneumoperitoneum. 4. Noninflamed appendix. ACT 112: Negative or not required by law. The above report was generated using voice recognition software. It may contain grammatical, syntax or spelling errors. Electronically signed by: Saud Muse M.D. 10/10/2021 5:06 PM Chest X-Ray 10/10/21 15:31 XR chest 1V portable HISTORY: 26 years-old Female SEPSIS acute sepsis COMPARISON: None TECHNIQUE: Portable AP view of the chest FINDINGS: The cardiac mediastinal and hilar silhouettes are within normal limits. There is no pneumothorax, pleural effusion, airspace consolidation or overt pulmonary edema. The bones of the chest appear grossly intact. IMPRESSION: No acute process. ACT 112: Negative or not required by law. The above report was generated using voice recognition software. It may contain grammatical, syntax or spelling errors. Electronically signed by: Saud Muse M.D. 10/10/2021 4:16 PM Code Status & VTE Plan Code Status Full code Supervising Physician Co-Signing Physician Notes I have seen and examined the patient and have discussed the case with the provider above. I agree with the assessment and plan as stated. 26 yo F with recent pelvic surgery presents with possible developing sepsis 2/2 post-operati ve complication related to an ovarian abscess. OBGYN is on board and helping with source control after she has been resuscitated with IV fluids and placed on broad spectrum antibiotics. She is hungry and reports pain of 7/10 which has been chronic for her over the past couple of weeks since the surgery. She denies fevers or chills. She reports some continued constipation. Physical exam with nondistended, tender lower abdomen with voluntary guarding. Lungs are clear and Heart rate is tachycardic with S1/2 heard and no m/g/r on auscultation. Physical exam is otherwise unremarkable. Agree with plan for consulting OB who may perform a drainage of this abscess in the next 24- 48 hours. Cont IV antibiotics during this time and await further recommendations. Cont supportive care in the meantime. DO Mohan
[2021-10-10] MEDS ORDERED: LACTATED RINGER'S 1,000 ML IV SCH (19:00)
[2021-10-10] MEDS ORDERED: ONDANSETRON INJ 2 MG/ML 2 ML VIAL IV STA (19:02)
[2021-10-10] MEDS ORDERED: SODIUM CHLORIDE 0.9% 1000ML 1,000 ML IV ONE (19:02)
--- NOTE | 2021-10-10 21:07 | Ultrasound Report ---
PELVIC ULTRASOUND CLINICAL HISTORY: Left ovarian cyst removal one month ago. ?abscess COMPARISON STUDY: CT of the abdomen and pelvis October 10, 2021 at 4:44 PM. TECHNIQUE: Transabdominal and transvaginal sonography of the pelvis was performed. FINDINGS: Uterus measures 8.2 x 3 x 3.8 cm. Endometrium measures 4 mm in thickness. Normal-appearing right ovary is not identified. Note is made of a 7.2 x 5.7 x 5.3 cm cystic focus within the right adn exa which corresponds to the finding on CT performed earlier today. This could reflect a dilated righ t fallopian tube or septated right ovarian cyst. The largest component measures 5.3 cm. Normal-appear ing left ovary is not visualized. Differentiation between the left ovary and possible abscess is diff icult on this exam. The left ovary measures approximately 4.2 x 2.7 x 3 cm. Adjacent complex focus is noted which favors a multiloculated abscess with the largest component measuring 3 cm. IMPRESSION: 1. Complex hypoechoic abnormality within the left adnexa. Differentiation between the left ovary and possible abscess is difficult on this exam and better depicted on CT performed earlier today. The fin dings favor a multiloculated left adnexal abscess, measuring approximately 3 cm. Short-term sonograph ic follow-up is recommended. 2. 7.2 x 5.7 x 5.3 cm cystic focus within the right adnexa. This could reflect a dilated right fallop wolf tube or septated right ovarian cyst. ACT 112: Negative or not required by law. Electronically signed by: Mann Nolasco M.D. 10/10/2021 9:05 PM
--- NOTE | 2021-10-10 21:25 | OB/GYN Consultation ---
Date of Consultation October 10, 2021 Assessment & Plan (1) Pelvic abscess in female: Patient with bilateral pelvic collections most consistent with abscesses. An inflammatory reaction to FloSeal, as postulated some weeks ago during her last hospital admission, seems unlikely to have spread to the opposite hemipelvis or to have the current appearance on imaging. The patient's history is most consistent with infection that began postoperatively and has worsened. Her current WBC may be relatively normal due to loculation of the pus in her pelvis, or less likely due to a septic consumptive process. As to the likely pathogen: her original pathology being corpus luteum does not strongly suggest a TOA or other genitourinary source; a small bowel perforation could exist and could have been held at bay by the treatments given to date or by a loculation forming around the site; skin ruiz could have been introduced surgically. All of these sources of infection remain possible until / unless a pelvic culture is obtained surgically, hence the suggestion of broad coverage with Zosyn and Vanco for now. Abscesses of this size will likely require drainage for the patient to fully recover, which will ideally not be done until after a 24-48 hour "cooling off" period with IV antibiotics. The earliest possible time that she could be 24 hours afebrile would be 10/11/21 at 1pm. The question remains whether any necessary surgical drainage is best done here at [facility] where our options are laparotomy or (possibly) laparoscopy. Tertiary centers are available in the region where interventional radiology might be able to drain these collections in a less-invasive manner. The patient is made aware of this, and for the moment prefers to remain here in our care without consideration of transfer for minimally invasive specialist care. If surgical drainage is felt to be benefic ial and is undertaken, a culture of the material in her adnexae could be used to narrow her antibiotic coverage. History of Present Illness Reason for Consultation: Pelvic Abscesses Requesting Physician: ER/Hospitalist teams Attending Physician: Ashley Preston DO History of Present Illness 26yo presents to ER with complaints of pelvic and lower abdominal pain, de creased appetite, and fevers, all in the setting of recent laparoscopic ovarian cystectomy. Recent history assembled from a combination of patient report and from reviewing her "[facility]" chart with her permission is as follows: The patient went in to multiple local ERs about four weeks ago for worsening pelvic pain on the left side - first [facility], then another location, then [facility] again, then [place] [facility], where the decision was made to take her for urgent laparoscopic cystectomy. This was done by Dr. Deleon. The procedure went well as far as the patient was told at that time, and she was discharged home from PACU. She felt fine on POD#1. She notes, however, that from POD#2 onward she began to experience worsening bilateral pelvic pain, nausea, anorexia, and fatigue. She says "it didn't help that my Grandmother the day after my surgery, and I had to go to a birthday constitution party for my 's grandmother the day after that, but it didn't cause all this either." She had difficulty eating and socializing at the birthday constitution party due to pain and fatigue. She was seen at an outpatient office affiliated with her surgeon on POD#9 for the symptoms of abdominal pain, nausea, emesis, anorexia, and also because she had not had a bowel movement since surgery. She reports that the surgeon told her at that visit that "he nicked her bowel," then said she needed to go to the hospital to be re-admitted. She did return to [place] where she tells me she was admitted for several days. During that time she was treated with IV Zosyn and also treated with prednisone 20mg PO daily. She was ultimately discharged home on oral prednisone plus oral augmentin. She showed me an imaging report from her re-admission which noted a 5-plus centimeter collection in the L adnexa, which was not present pre-operatively, and which had air bubbles in it, which was felt to be consistent with abscess. An addendum on the same radiology report says that Dr. Deleon told the radiologist that FloSeal has small bubbles in it, and that they were potentially seeing FloSeal which the surgeon had placed at the L ovary during the surgery, not necessarily gas bubbles associated with an abscess. The discharge summary from this admission further notes that it was concluded that Cherie was more likely having an "allergic reaction to FloSeal" and not likely having an abscess in her pelvis, because her WBC was not significantly elevated and her temperature was not elevated. I cannot see a MAR to see whether antipyretics were being given. I was able to see a note that states her original surgical pathology was a "corpus luteum cyst." Cherie says she was given the impression that "he decided he didn't unruly my bowel, and I was allergic to the glue he put on my ovary but he thought it wasn't a big deal and I should just let it absorb." The patient notes that after being discharged home, she felt that her abdominal pain never significantly improved, but that it was "tolerable" for the time she was still taking augmentin. Her bowels did begin to move, but she only passed small, soft stools on rare occasions; they were never normal. She had very poor appetite, and although what she ate would stay down, she never felt much like eating. She often was fatigued and had headache or felt feverish. She was worried that something was still wrong, but didn't feel the symptoms were alarming enough to merit returning to her doctor, since she wasn't sure exactly what to say was wrong. When she finally finished her antibiotic prescription two days ago, though, the pain began to dramatically escalate. She had been using motrin but this was no longer able to significantly affect her pain. She took her last dose of Motrin last night. She has almost no appetite, and the only things she consumed all day today were two tiny boxes of "nerds" candy and about 2 oz of gatorade at 1pm. 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 She checked her temperature around noon and it was 102F. That is why she called her usual PCP, who advised her not to return to [place], but instead to go to a different hospital (suggesting ours among the options) to get a second opinion. She says she's worried about getting back to work as soon as possible and feels she just needs to get answers and get better. The patient is , and her has 3 children from a previous relationship. Their mother has limited visitation. Cherie is sexually active with her and uses condoms "100% of the time" for contraception and STD prevention. They have not attempted sex since 7 or 8 days ago due to the sharp pelvic pain that it caused at that time. She had Depo Provera in her medication list, which I asked about, and she says she has not used that for at least two years. She was negative on a test today at the ER, and is agreeable to a test for GC/CT, though expects it to be negative given her use of condoms. We discussed the role of a pelvic exam in her care here, and that since she had been moved to a regular hospital bed it may be difficult to do a detailed pelvic exam. I am uncertain that an exam will yield plan-modifying results at this moment given the CT and US we already have, and Cherie is certain it will hurt, so we agree to defer it at this time and do only an abdominal exam. She agrees to collect a urine specimen for GC/CT testing. Allergies Allergy/AdvReac Type Severity Reaction Status Date / Time latex Allergy Intermediate Rash Verified 10/10/21 16:24 SURGICAL GLUE Allergy Intermediate RASH, Uncoded 10/10/21 16:24 BLISTERED SKIN Home Medications Medication Instructions Recorded Confirmed Type acetaminophen 500 mg tablet 1,000 mg PO DIRECTED PRN 10/10/21 10/10/21 History (Tylenol Extra Strength) Patient History Medical History (Updated 10/10/21 @ 21:49 by Eun Basurto MD) Migraine Surgical History (Updated 10/10/21 @ 19:45 by Ingrid Bryant PA-C) H/O ovarian cystectomy Hx of adenoidectomy Hx of tonsillectomy Family History (Updated 10/10/21 @ 19:46 by Ingrid Bryant PA-C) Denies family history of Diabetes Dyslipidemia Heart disease Lung disease Cancer Hypertension Social History (Updated 10/10/21 @ 19:46 by Ingrid Bryant PA-C) Smoking Status: Never smoker Second Hand Exposure: Yes; Do You Dip or Chew Tobacco: No; Hx Alcohol Use: No Hx Substance Use: No Current Living Situation: Significant Other current occupational status: employed Feels Safe at Home: Yes Physical Exam Constitutional: Remarkably normal-appearing considering her HPI and vitals; sitting semi-johnson in bed, hands resting at her sides, talking with normal fluency and energy. Noted to be able to reach for a phone on the side table in a manner that involves twisting her torso without obvious difficulty. Conversing with admitting nurse on 2S when I arrived. Eyes: PERRL, conjunctivae normal, anicteric sclerae ENMT: Ears: no hearing impairment and no external ear abnormality Nose: no external nose abnormality Mouth: no lip abnormality Patient removed mask several times, unbidden, during history-taking. Neck: no nuchal rigidity Respiratory: normal respiratory effort; no respiratory distress and no labored breathing Cardiovascular: Rate/Rhythm: regular rhythm Tachycardic since admission; gradually seems to be coming down with IV hydration but still 100bpm Gastrointestinal (Abdomen): Inspection/Auscultation: abdomen normal to inspection and + abdominal surgical scar; abdomen not distended and no visible pulsation Percussion/Palpation: + abdomen tender and abdomen soft; no guarding and abdomen not rigid No rebound. More tender on LLQ than RLQ but both tender with palpation. No mass palpable; mild obesity may limit exam of soft collections. Skin: no rashes, warm and dry Psychiatric: A+Ox3, euthymic affect Genitourinary: Pelvic exam deferred as above / see HPI. Will collect urine GC/CT test. Results & Data ([facility]) Vital Signs (Past 12 Hours) Vital Signs Temp Pulse Pulse Resp BP BP Pulse Ox 10/10/21 19:45 100 H 14 98 10/10/21 19:30 107 H 14 134/107 H 100 10/10/21 19:15 99 H 17 140/94 99 10/10/21 19:00 104 H 20 138/88 100 10/10/21 18:47 110 H 17 130/94 99 10/10/21 18:30 19 98 10/10/21 18:15 116 H 15 99 10/10/21 18:00 107 H 10 L 139/79 100 10/10/21 17:30 110 H 100 H 19 143/91 H 120/100 100 10/10/21 17:15 122 H 10 L 147/113 H 100 10/10/21 17:00 112 H 115 H 22 124/90 147/113 H 100 10/10/21 16:54 135/91 10/10/21 16:45 110 H 20 147/113 H 100 10/10/21 16:30 112 H 112 H 16 143/97 H 147/113 H 100 10/10/21 16:27 107 H 15 135/96 100 10/10/21 16:15 127 H 102 H 17 135/96 100 10/10/21 16:02 115 H 13 141/97 H 10/10/21 16:01 110 H 12 141/97 H 98 10/10/21 16:00 115 H 14 10/10/21 15:55 122 H 15 10/10/21 15:46 98 H 104 H 12 141/97 H 99 10/10/21 15:12 97.5 F L 137 H 18 155/99 H 97 Laboratory Results Laboratory Results - last 24 hr 10/10/21 10/10/21 10/10/21 15:46 15:46 15:59 WBC 10.53 RBC 4.75 Hgb 13.3 POC Hgb Hct 40.8 POC Hct MCV 85.9 MCH 28.0 MCHC 32.6 RDW Std Deviation 45.2 RDW Coeff of Denys 14.5 Plt Count 384 MPV 9.0 Immature Gran % (Auto) 0.3 Neut % (Auto) 64.5 Lymph % (Auto) 21.1 [place] % (Auto) 5.8 Eos % (Auto) 7.9 Baso % (Auto) 0.4 Neut # (Auto) 6.80 H Lymph # (Auto) 2.22 [place] # (Auto) 0.61 H Eos # (Auto) 0.83 H Baso # (Auto) 0.04 Immature Gran # (Auto) 0.03 H PT INR APTT PTT Ratio POC Sodium Sodium POC Potassium Potassium POC Chloride Chloride Carbon Dioxide POC Total CO2 Anion Gap POC Anion Gap POC BUN BUN Creatinine POC Creatinine Est Cr Clr Drug Dosing Est GFR ( Amer) Est GFR (Non-Af Amer) BUN/Creatinine Ratio Glucose POC Glucose (other) Lactate Calcium POC Ioniz Calcium Tyrel Magnesium Total Bilirubin AST ALT Alkaline Phosphatase Troponin I High Sens Total Protein Albumin Globulin Albumin/Globulin Ratio HCG, Qual Urine Color Yellow Urine Appearance Clear Urine pH 6.5 Ur Specific [place] 1.007 Urine Protein Negative Urine Glucose (UA) Negative Urine Ketones Negative Urine Blood Trace H Urine Nitrite Negative Urine Bilirubin Negative Urine Urobilinogen Negative Ur Leukocyte Esterase Trace H Urine WBC (Auto) 1-5 Urine RBC (Auto) 0-4 U Hyaline Cast (Auto) 1-5 U Epithel Cells (Auto) >30 H Urine Bacteria (Auto) Negative Urine Test Cancelled SARS-CoV-2, RNA, NAAT 10/10/21 10/10/2110/10/22 15:59 15:59 16:15 WBC RBC Hgb POC Hgb Hct POC Hct MCV MCH MCHC RDW Std Deviation RDW Coeff of Denys Plt Count MPV Immature Gran % (Auto) Neut % (Auto) Lymph % (Auto) [place] % (Auto) Eos % (Auto) Baso % (Auto) Neut # (Auto) Lymph # (Auto) [place] # (Auto) Eos # (Auto) Baso # (Auto) Immature Gran # (Auto) PT 10.3 INR 1.0 APTT 25.3 PTT Ratio 0.9 POC Sodium Sodium 138 POC Potassium Potassium 3.6 POC Chloride Chloride 105 Carbon Dioxide 24 POC Total CO2 Anion Gap 9 POC Anion Gap POC BUN BUN 7 Creatinine 0.56 L POC Creatinine Est Cr Clr Drug Dosing 143.8 Est GFR ( Amer) > 150.0 Est GFR (Non-Af Amer) 129.6 BUN/Creatinine Ratio 12.5 Glucose 78 POC Glucose (other) Lactate 1.1 Calcium 9.6 POC Ioniz Calcium Tyrel Magnesium 1.8 Total Bilirubin 0.4 AST 22 ALT 36 Alkaline Phosphatase 74 Troponin I High Sens 4.0 Total Protein 7.3 Albumin 4.5 Globulin 2.8 Albumin/Globulin Ratio 1.6 HCG, Qual Urine Color Urine Appearance Urine pH Ur Specific [place] Urine Protein Urine Glucose (UA) Urine Ketones Urine Blood Urine Nitrite Urine Bilirubin Urine Urobilinogen Ur Leukocyte Esterase Urine WBC (Auto) Urine RBC (Auto) U Hyaline Cast (Auto) U Epithel Cells (Auto) Urine Bacteria (Auto) Urine Test SARS-CoV-2, RNA, NAAT 10/10/21 10/10/21 10/10/21 16:16 16:24 16:56 WBC RBC Hgb POC Hgb 12.9 Hct POC Hct 38 MCV MCH MCHC RDW Std Deviation RDW Coeff of Denys Plt Count MPV Immature Gran % (Auto) Neut % (Auto) Lymph % (Auto) [place] % (Auto) Eos % (Auto) Baso % (Auto) Neut # (Auto) Lymph # (Auto) [place] # (Auto) Eos # (Auto) Baso # (Auto) Immature Gran # (Auto) PT INR APTT PTT Ratio POC Sodium 140 Sodium POC Potassium 3.5 Potassium POC Chloride 105 Chloride Carbon Dioxide POC Total CO2 22 L Anion Gap POC Anion Gap 17.0 POC BUN 6 L BUN Creatinine POC Creatinine 0.5 L Est Cr Clr Drug Dosing Est GFR ( Amer) Est GFR (Non-Af Amer) BUN/Creatinine Ratio Glucose POC Glucose (other) 81 Lactate Calcium POC Ioniz Calcium Tyrel 1.20 Magnesium Total Bilirubin AST ALT Alkaline Phosphatase Troponin I High Sens Total Protein Albumin Globulin Albumin/Globulin Ratio HCG, Qual Negative Urine Color Urine Appearance Urine pH Ur Specific [place] Urine Protein Urine Glucose (UA) Urine Ketones Urine Blood Urine Nitrite Urine Bilirubin Urine Urobilinogen Ur Leukocyte Esterase Urine WBC (Auto) Urine RBC (Auto) U Hyaline Cast (Auto) U Epithel Cells (Auto) Urine Bacteria (Auto) Urine Test SARS-CoV-2, RNA, NAAT NEGATIVE 10/10/21 19:08 WBC RBC Hgb POC Hgb Hct POC Hct MCV MCH MCHC RDW Std Deviation RDW Coeff of Denys Plt Count MPV Immature Gran % (Auto) Neut % (Auto) Lymph % (Auto) [place] % (Auto) Eos % (Auto) Baso % (Auto) Neut # (Auto) Lymph # (Auto) [place] # (Auto) Eos # (Auto) Baso # (Auto) Immature Gran # (Auto) PT INR APTT PTT Ratio POC Sodium Sodium POC Potassium Potassium POC Chloride Chloride Carbon Dioxide POC Total CO2 Anion Gap POC Anion Gap POC BUN BUN Creatinine POC Creatinine Est Cr Clr Drug Dosing Est GFR ( Amer) Est GFR (Non-Af Amer) BUN/Creatinine Ratio Glucose POC Glucose (other) Lactate 0.8 Calcium POC Ioniz Calcium Tyrel Magnesium Total Bilirubin AST ALT Alkaline Phosphatase Troponin I High Sens Total Protein Albumin Globulin Albumin/Globulin Ratio HCG, Qual Urine Color Urine Appearance Urine pH Ur Specific [place] Urine Protein Urine Glucose (UA) Urine Ketones Urine Blood Urine Nitrite Urine Bilirubin Urine Urobilinogen Ur Leukocyte Esterase Urine WBC (Auto) Urine RBC (Auto) U Hyaline Cast (Auto) U Epithel Cells (Auto) Urine Bacteria (Auto) Urine Test SARS-CoV-2, RNA, NAAT Diagnostic Findings Laboratory Results WBC 10.53 K/uL (4.8-10.8) 10/10/21 15:59 RBC 4.75 M/uL (4.2-5.4) 10/10/21 15:59 Hgb 13.3 g/dL (12.0-16.0) 10/10/21 15:59 POC Hgb 12.9 g/dl (12.0-16.0) 10/10/21 16:16 Hct 40.8 % (37-47) 10/10/21 15:59 POC Hct 38 % (37-47) 10/10/21 16:16 MCV 85.9 fL (80-100) 10/10/21 15:59 MCH 28.0 pg (25-34) 10/10/21 15:59 MCHC 32.6 g/dL (32-36) 10/10/21 15:59 RDW Std Deviation 45.2 fL (36.4-46.3) 10/10/21 15:59 RDW Coeff of Denys 14.5 % (11.5-14.5) 10/10/21 15:59 Plt Count 384 K/uL (130-400) 10/10/21 15:59 MPV 9.0 fL (7.4-10.4) 10/10/21 15:59 Immature Gran % (Auto) 0.3 % 10/10/21 15:59 Neut % (Auto) 64.5 % 10/10/21 15:59 Lymph % (Auto) 21.1 % 10/10/21 15:59 [place] % (Auto) 5.8 % 10/10/21 15:59 Eos % (Auto) 7.9 % 10/10/21 15:59 Baso % (Auto) 0.4 % 10/10/21 15:59 Neut # (Auto) 6.80 K/uL (1.4-6.5) H 10/10/21 15:59 Lymph # (Auto) 2.22 K/uL (1.2-3.4) 10/10/21 15:59 [place] # (Auto) 0.61 K/uL (0.11-0.59) H 10/10/21 15:59 Eos # (Auto) 0.83 K/uL (0-0.5) H 10/10/21 15:59 Baso # (Auto) 0.04 K/uL (0-0.2) 10/10/21 15:59 Immature Gran # (Auto) 0.03 K/uL (0.00-0.02) H 10/10/21 15:59 PT 10.3 Seconds (9.0-12.0) 10/10/21 15:59 INR 1.0 (0.9-1.1) 10/10/21 15:59 APTT 25.3 Seconds (21.0-31.0) 10/10/21 15:59 PTT Ratio 0.9 10/10/21 15:59 POC Sodium 140 mmol/L (135-144) 10/10/21 16:16 Sodium 138 mmol/L (136-145) 10/10/21 15:59 POC Potassium 3.5 mmol/L (3.3-5.0) 10/10/21 16:16 Potassium 3.6 mmol/L (3.5-5.1) 10/10/21 15:59 POC Chloride 105 mmol/L (101-112) 10/10/21 16:16 Chloride 105 mmol/L (98-107) 10/10/21 15:59 Carbon Dioxide 24 mmol/L (21-32) 10/10/21 15:59 POC Total CO2 22 mmol/L (24-31) L 10/10/21 16:16 Anion Gap 9 (3-11) 10/10/21 15:59 POC Anion Gap 17.0 mmol/L (16-25) 10/10/21 16:16 POC BUN 6 mg/dl (7-18) L 10/10/21 16:16 BUN 7 mg/dl (6-23) 10/10/21 15:59 Creatinine 0.56 mg/dl (0.6-1.2) L 10/10/21 15:59 POC Creatinine 0.5 mg/dl (0.6-1.3) L 10/10/21 16:16 Est Cr Clr Drug Dosing 143.8 ml/min 10/10/21 15:59 Est GFR ( Amer) > 150.0 ml/min 10/10/21 15:59 Est GFR (Non-Af Amer) 129.6 ml/min 10/10/21 15:59 BUN/Creatinine Ratio 12.5 (10-20) 10/10/21 15:59 Glucose 78 mg/dl (70-99(Fasting)) 10/10/21 15:59 POC Glucose (other) 81 mg/dl (70-99) 10/10/21 16:16 Lactate 0.8 mmol/L (0.4-2.0) 10/10/21 19:08 Calcium 9.6 mg/dl (8.5-10.1) 10/10/21 15:59 POC Ioniz Calcium Tyrel 1.20 mmol/l (1.12-1.32) 10/10/21 16:16 Magnesium 1.8 mg/dl (1.7-2.4) 10/10/21 15:59 Total Bilirubin 0.4 mg/dl (0.2-1.0) 10/10/21 15:59 AST 22 U/L (13-39) 10/10/21 15:59 ALT 36 U/L (7-52) 10/10/21 15:59 Alkaline Phosphatase 74 U/L (34-104) 10/10/21 15:59 Troponin I High Sens 4.0 pg/ml (0-14) 10/10/21 15:59 Total Protein 7.3 gm/dl (6.0-8.3) 10/10/21 15:59 Albumin 4.5 gm/dl (3.4-5.0) 10/10/21 15:59 Globulin 2.8 gm/dl (2.5-4.0) 10/10/21 15:59 Albumin/Globulin Ratio 1.6 (0.9-2) 10/10/21 15:59 HCG, Qual Negative (Negative) 10/10/21 16:24 Urine Color Yellow 10/10/21 15:46 Urine Appearance Clear (Clear) 10/10/21 15:46 Urine pH 6.5 (4.5-7.5) 10/10/21 15:46 Ur Specific [place] 1.007 (1.000-1.030) 10/10/21 15:46 Urine Protein Negative (Negative) 10/10/21 15:46 Urine Glucose (UA) Negative (Negative) 10/10/21 15:46 Urine Ketones Negative (Negative) 10/10/21 15:46 Urine Blood Trace (Negative) H 10/10/21 15:46 Urine Nitrite Negative (Negative) 10/10/21 15:46 Urine Bilirubin Negative (Negative) 10/10/21 15:46 Urine Urobilinogen Negative (Negative) 10/10/21 15:46 Ur Leukocyte Esterase Trace (Negative) H 10/10/21 15:46 Urine WBC (Auto) 1-5 /hpf (0-5) 10/10/21 15:46 Urine RBC (Auto) 0-4 /hpf (0-4) 10/10/21 15:46 U Hyaline Cast (Auto) 1-5 /lpf (0-5) 10/10/21 15:46 U Epithel Cells (Auto) >30 /lpf (0-5) H 10/10/21 15:46 Urine Bacteria (Auto) Negative (Negative) 10/10/21 15:46 Urine Test Cancelled 10/10/21 15:46 SARS-CoV-2, RNA, NAAT NEGATIVE (NEGATIVE) 10/10/21 16:56 Impressions Abdomen/Pelvis CT 10/10/21 15:[address] WITH IV CONTRAST CT DOSE: 419.04 mGy.cm HISTORY: Acute fever with recent pelvic surgery. post op ovarian cyst removal febrile worsening omid TECHNIQUE: Multiaxial CT images of the abdomen and pelvis were performed following the IV administration of 94 cc of Optiray, A dose lowering technique was utilized adhering to the principles of ALARA. COMPARISON STUDY: None. FINDINGS: There is no acute process identified within the imaged lower chest. No pneumatosis or pneumoperitoneum identified. Unremarkable spleen, pancreas, adrenal glands, gallbladder and liver. There is patency of the hepatic and portal veins. Symmetric enhancement of the kidneys. Mild right-sided pelviectasis with mild dilation of the bilateral ureters. No didier hydronephrosis. Mild urinary bladder distention. Unremarkable uterus. There is heterogeneous enhancement within the left adnexal tissues and left ovary. There is suggestion of a probable left adnexal abscess measuring up to 2.8 cm on image 352 measuring up to 3.5 cm in length on the sagittal images. This extends into the pelvic cul-de-sac. Cystic serpiginous structure of the right adnexum measures over 8 cm in greatest dimension. Aorta and IVC are unremarkable. There is no lymphadenopathy identified. Mild inflammatory stranding of the pelvis. No bowel obstruction. Mild rectal wall thickening is likely reactive. Noninflamed appendix. Unremarkable soft tissues. There is no acute fracture identified. IMPRESSION: 1. Heterogeneous enhancement of the left adnexum with probable left adnexal/pelvic cul-de-sac multilocular abscess measuring over 3 cm. 2. Serpiginous cystic structure of the right adnexum measuring over 8 cm in greatest dimension is suggestive of a dilated fluid-filled fallopian tube. Hydrosalpinx versus pyosalpinx considered. The constellation of findings should be correlated with a follow-up pelvic ultrasound. 3. No bowel obstruction or pneumoperitoneum. 4. Noninflamed appendix. ACT 112: Negative or not required by law. The above report was generated using voice recognition software. It may contain grammatical, syntax or spelling errors. Electronically signed by: Saud Muse M.D. 10/10/2021 5:06 PM Chest X-Ray 10/10/21 15:31 XR chest 1V portable HISTORY: 26 years-old Female SEPSIS acute sepsis COMPARISON: None TECHNIQUE: Portable AP view of the chest FINDINGS: The cardiac mediastinal and hilar silhouettes are within normal limits. There is no pneumothorax, pleural effusion, airspace consolidation or overt pulmonary edema. The bones of the chest appear grossly intact. IMPRESSION: No acute process. ACT 112: Negative or not required by law. The above report was generated using voice recognition software. It may contain grammatical, syntax or spelling errors. Electronically signed by: Saud Muse M.D. 10/10/2021 4:16 PM Pelvis Ultrasound 10/10/21 18:16 PELVIC ULTRASOUND CLINICAL HISTORY: Left ovarian cyst removal one month ago. ?abscess COMPARISON STUDY: CT of the abdomen and pelvis October 10, 2021 at 4:44 PM. TECHNIQUE: Transabdominal and transvaginal sonography of the pelvis was performed. FINDINGS: Uterus measures 8.2 x 3 x 3.8 cm. Endometrium measures 4 mm in thickness. Normal-appearing right ovary is not identified. Note is made of a 7.2 x 5.7 x 5.3 cm cystic focus within the right adnexa which corresponds to the finding on CT performed earlier today. This could reflect a dilated right fallopian tube or septated right ovarian cyst. The largest component measures 5.3 cm. Normal-appearing left ovary is not visualized. Differentiation between the left ovary and possible abscess is difficult on this exam. The left ovary measures approximately 4.2 x 2.7 x 3 cm. Adjacent complex focus is noted which favors a multiloculated abscess with the largest component measuring 3 cm. IMPRESSION: 1. Complex hypoechoic abnormality within the left adnexa. Differentiation between the left ovary and possible abscess is difficult on this exam and better depicted on CT performed earlier today. The findings favor a multiloculated left adnexal abscess, measuring approximately 3 cm. Short-term sonographic follow-up is recommended. 2. 7.2 x 5.7 x 5.3 cm cystic focus within the right adnexa. This could reflect a dilated right fallopian tube or septated right ovarian cyst. ACT 112: Negative or not required by law. Electronically signed by: Mann Nolasco M.D. 10/10/2021 9:05 PM
[2021-10-10] MEDS ORDERED: ONDANSETRON INJ 2 MG/ML 2 ML VIAL IV PRN (21:37)
[2021-10-10] MEDS ORDERED: ACETAMINOPHEN 500 MG TAB PO PRN (21:45)
[2021-10-10] MEDS ORDERED: POLYETHYLENE (MIRALAX) 17 GM PACK PO PRN (22:01)
[2021-10-10] MEDS ORDERED: oxyCODONE/ACETAMINOPHEN 5mg/325mg TAB PO PRN (22:01)
[2021-10-10] MEDS ORDERED: DOCUSATE SODIUM 100 MG CAP PO ONE (22:30)
[2021-10-10] MEDS: HEPARIN SOD 5,000 UNIT/0.5 ML VIAL SQ SCH (22:40)
[2021-10-10] MEDS: PIPERACILLIN/TAZOBACTAM 3.375 GM in DEXTROSE 5% 100 ML IV SCH (22:47)
[2021-10-11] MEDS ORDERED: VANCOMYCIN HCL 1,000 MG in SODIUM CHLORIDE 0.9% 250 ML IV SCH (04:00)
[2021-10-11] MEDS ORDERED: diphenhydrAMINE 50 MG/ML VIAL IV STA (04:45)
--- NOTE | 2021-10-11 04:46 | Communication Note ---
Date of Service: October 11, 2021 4:45 AM Patient ran out and complained to RN of feeling itchy all over during IV vancomycin infusion. Face and upper part of the neck looked red and flushed as per RN. AP Vancomycin infusion reaction Stop vancomycin Add vancomycin to ADR list Benadryl 1 dose now [address] in place of vancomycin for MRSA coverage for postop pelvic infection for now. Will relay to AM provider.
[2021-10-11] MEDS ORDERED: DAPTOmycin 250 MG in SYRINGE 0 ML IV ONE (05:00)
[2021-10-11] MEDS: PIPERACILLIN/TAZOBACTAM 3.375 GM in DEXTROSE 5% 100 ML IV SCH ×2 (05:25→14:02)
[2021-10-11 07:04] LABS: Hematocrit (blood only) 36.1 % (37-47); Hemoglobin 11.8 g/dL (12.0-16.0); Mean Corpuscular Hemoglobin 28.4 pg (25-34); Mean Corpuscular Hgb Conc 32.7 g/dL (32-36); Mean Corpuscular Volume 86.8 fL (80-100); Platelet Count 307 K/uL (130-400); RDW Coefficient of Variation 14.8 % (11.5-14.5); RDW Standard Deviation 47.4 fL (36.4-46.3); Red Blood Count 4.16 M/uL (4.2-5.4); White Blood Count 6.35 K/uL (4.8-10.8)
[2021-10-11 07:29] LABS: Albumin Globulin Ratio 1.7 (0.9-2); Albumin Level 3.5 gm/dl (3.4-5.0); BUN Creatinine Ratio 9.4 (10-20); Bilirubin,Total 0.7 mg/dl (0.2-1.0); Calcium 8.3 mg/dl (8.5-10.1); Creatinine Clr Calc Pharmacy 139.8 ml/min; Est GFR (African American) 143.7 ml/min; Globulin 2.1 gm/dl (2.5-4.0); Magnesium 1.9 mg/dl (1.7-2.4); Phosphorus 3.2 mg/dl (2.5-4.9); Potassium 3.7 mmol/L (3.5-5.1); Total Protein 5.6 gm/dl (6.0-8.3)
[2021-10-11] MEDS: HEPARIN SOD 5,000 UNIT/0.5 ML VIAL SQ SCH ×2 (09:54→20:27)
[2021-10-11] MEDS: DOCUSATE SODIUM 100 MG CAP PO SCH ×2 (09:54→20:27)
--- NOTE | 2021-10-11 11:07 | Gynecologic Progress Note ---
Date of Service October 11, 2021 Assessment & Plan (1) Pelvic abscess in female: Plan: Reviewed events of the night and pt's history with pt and her mom as well as imaging and lab results. There is a known L adnexal abscess that was likely seen during her re-admission to [place] as well as a now R adnexal structure serpiginous cystic structure. The uterus has appeared to remain uninvolved during this time. The pt had been previously counseled regarding drainage options including transfer to a tertiary care center so that interventional radiology could attempt drainage vs surgical drainage here and had opted to remain here for this. I again reviewed these options with the pt and her mother with my concern that attempts at surgical drainage here at this time would have higher risk than potential benefit compared to minimally invasive drainage due to the significant inflammatory process occurring currently, even with IV antibiotics being on board for not quite 24 hours. Pt has responded well to antibiotics prior to antibiotic reaction and VS/labs are reflective of that which is reassuring. We discussed risks vs benefits of each in depth and after discussion, they are agreeable and desiring of transfer for IR consultation and drainage. I did inform primary team of my discussion with the pt and mother and discussed [place] or [facility] as closest options. Primary team stated they would get in touch with coordinator to initiate transfer process, they are aware can contact me if they need further assistance. Admission and Anticipated Discharge Date Admission Date: October 10, 2021 Subjective Met with patient and her mother to review events of the night. Pt had reaction to vancomycin early this morning and so this was changed. Pt reports that pain was at a 9/10 when she first came to ER, was able to get pain-free when at rest until vancomycin reaction and since then started having increasing pain again. Denies fevers, chills. Physical Exam Gastrointestinal (Abdomen): Inspection/Auscultation: abdomen normal to inspection; abdomen not distended Percussion/Palpation: + abdomen tender (mildly TTP in LLQ, some TTP in RLQ but L > R) and abdomen soft; no guarding and abdomen not rigid Results & Data ([facility]) Vital Signs (Past 12 Hours) Vital Signs Temp Pulse Pulse Resp BP Pulse Ox 10/11/21 07:19 98.2 F 89 18 103/67 98 10/11/21 03:56 97.5 F L 92 H 20 120/78 98 10/10/21 23:59 97 H Laboratory Results 10/11/21 10/11/21 10/10/21 Range/Units 06:17 06:17 22:12 WBC 6.35 (4.8-10.8) K/uL RBC 4.16 L (4.2-5.4) M/uL Hgb 11.8 L (12.0-16.0) g/dL POC Hgb (12.0-16.0) g/dl Hct 36.1 L (37-47) % POC Hct (37-47) % MCV 86.8 (80-100) fL MCH 28.4 (25-34) pg MCHC 32.7 (32-36) g/dL RDW Std Deviation 47.4 H (36.4-46.3) fL RDW Coeff of Denys 14.8 H (11.5-14.5) % Plt Count 307 (130-400) K/uL MPV 9.0 (7.4-10.4) fL Immature Gran % (Auto) % Neut % (Auto) % Lymph % (Auto) % [place] % (Auto) % Eos % (Auto) % Baso % (Auto) % Neut # (Auto) (1.4-6.5) K/uL Lymph # (Auto) (1.2-3.4) K/uL [place] # (Auto) (0.11-0.59) K/uL Eos # (Auto) (0-0.5) K/uL Baso # (Auto) (0-0.2) K/uL Immature Gran # (Auto) (0.00-0.02) K/uL PT (9.0-12.0) Seconds INR (0.9-1.1) APTT (21.0-31.0) Seconds PTT Ratio POC Sodium (135-144) mmol/L Sodium 138 (136-145) mmol/L POC Potassium (3.3-5.0) mmol/L Potassium 3.7 (3.5-5.1) mmol/L POC Chloride (101-112) mmol/L Chloride 108 H (98-107) mmol/L Carbon Dioxide 25 (21-32) mmol/L POC Total CO2 (24-31) mmol/L Anion Gap 5 (3-11) POC Anion Gap (16-25) mmol/L POC BUN (7-18) mg/dl BUN 6 (6-23) mg/dl Creatinine 0.64 (0.6-1.2) mg/dl POC Creatinine (0.6-1.3) mg/dl Est Cr Clr Drug Dosing 139.8 ml/min Est GFR ( Amer) 143.7 ml/min Est GFR (Non-Af Amer) 124.0 ml/min BUN/Creatinine Ratio 9.4 L (10-20) Glucose 90 (70-99(Fasting)) mg/dl POC Glucose (other) (70-99) mg/dl Lactate (0.4-2.0) mmol/L Calcium 8.3 L (8.5-10.1) mg/dl POC Ioniz Calcium Tyrel (1.12-1.32) mmol/l Phosphorus 3.2 (2.5-4.9) mg/dl Magnesium 1.9 (1.7-2.4) mg/dl Total Bilirubin 0.7 (0.2-1.0) mg/dl AST 17 (13-39) U/L ALT 26 (7-52) U/L Alkaline Phosphatase 56 (34-104) U/L Troponin I High Sens (0-14) pg/ml Total Protein 5.6 L D (6.0-8.3) gm/dl Albumin 3.5 (3.4-5.0) gm/dl Globulin 2.1 L (2.5-4.0) gm/dl Albumin/Globulin Ratio 1.7 (0.9-2) HCG, Qual (Negative) Urine Color Urine Appearance (Clear) Urine pH (4.5-7.5) Ur Specific [place] (1.000-1.030) Urine Protein (Negative) Urine Glucose (UA) (Negative) Urine Ketones (Negative) Urine Blood (Negative) Urine Nitrite (Negative) Urine Bilirubin (Negative) Urine Urobilinogen (Negative) Ur Leukocyte Esterase (Negative) Urine WBC (Auto) (0-5) /hpf Urine RBC (Auto) (0-4) /hpf U Hyaline Cast (Auto) (0-5) /lpf U Epithel Cells (Auto) (0-5) /lpf Urine Bacteria (Auto) (Negative) Urine Test C.trachomatis RNA Pending N.gonorrhoeae RNA Pending SARS-CoV-2, RNA, NAAT (NEGATIVE) 10/10/21 10/10/21 10/10/21 Range/Units 19:08 16:56 16:24 WBC (4.8-10.8) K/uL RBC (4.2-5.4) M/uL Hgb (12.0-16.0) g/dL POC Hgb (12.0-16.0) g/dl Hct (37-47) % POC Hct (37-47) % MCV (80-100) fL MCH (25-34) pg MCHC (32-36) g/dL RDW Std Deviation (36.4-46.3) fL RDW Coeff of Denys (11.5-14.5) % Plt Count (130-400) K/uL MPV (7.4-10.4) fL Immature Gran % (Auto) % Neut % (Auto) % Lymph % (Auto) % [place] % (Auto) % Eos % (Auto) % Baso % (Auto) % Neut # (Auto) (1.4-6.5) K/uL Lymph # (Auto) (1.2-3.4) K/uL [place] # (Auto) (0.11-0.59) K/uL Eos # (Auto) (0-0.5) K/uL Baso # (Auto) (0-0.2) K/uL Immature Gran # (Auto) (0.00-0.02) K/uL PT (9.0-12.0) Seconds INR (0.9-1.1) APTT (21.0-31.0) Seconds PTT Ratio POC Sodium (135-144) mmol/L Sodium (136-145) mmol/L POC Potassium (3.3-5.0) mmol/L Potassium (3.5-5.1) mmol/L POC Chloride (101-112) mmol/L Chloride (98-107) mmol/L Carbon Dioxide (21-32) mmol/L POC Total CO2 (24-31) mmol/L Anion Gap (3-11) POC Anion Gap (16-25) mmol/L POC BUN (7-18) mg/dl BUN (6-23) mg/dl Creatinine (0.6-1.2) mg/dl POC Creatinine (0.6-1.3) mg/dl Est Cr Clr Drug Dosing ml/min Est GFR ( Amer) ml/min Est GFR (Non-Af Amer) ml/min BUN/Creatinine Ratio (10-20) Glucose (70-99(Fasting)) mg/dl POC Glucose (other) (70-99) mg/dl Lactate 0.8 (0.4-2.0) mmol/L Calcium (8.5-10.1) mg/dl POC Ioniz Calcium Tyrel (1.12-1.32) mmol/l Phosphorus (2.5-4.9) mg/dl Magnesium (1.7-2.4) mg/dl Total Bilirubin (0.2-1.0) mg/dl AST (13-39) U/L ALT (7-52) U/L Alkaline Phosphatase (34-104) U/L Troponin I High Sens (0-14) pg/ml Total Protein (6.0-8.3) gm/dl Albumin (3.4-5.0) gm/dl Globulin (2.5-4.0) gm/dl Albumin/Globulin Ratio (0.9-2) HCG, Qual Negative (Negative) Urine Color Urine Appearance (Clear) Urine pH (4.5-7.5) Ur Specific [place] (1.000-1.030) Urine Protein (Negative) Urine Glucose (UA) (Negative) Urine Ketones (Negative) Urine Blood (Negative) Urine Nitrite (Negative) Urine Bilirubin (Negative) Urine Urobilinogen (Negative) Ur Leukocyte Esterase (Negative) Urine WBC (Auto) (0-5) /hpf Urine RBC (Auto) (0-4) /hpf U Hyaline Cast (Auto) (0-5) /lpf U Epithel Cells (Auto) (0-5) /lpf Urine Bacteria (Auto) (Negative) Urine Test C.trachomatis RNA N.gonorrhoeae RNA SARS-CoV-2, RNA, NAAT NEGATIVE (NEGATIVE) 10/10/21 10/10/21 10/10/21 Range/Units 16:16 16:15 15:59 WBC (4.8-10.8) K/uL RBC (4.2-5.4) M/uL Hgb (12.0-16.0) g/dL POC Hgb 12.9 (12.0-16.0) g/dl Hct (37-47) % POC Hct 38 (37-47) % MCV (80-100) fL MCH (25-34) pg MCHC (32-36) g/dL RDW Std Deviation (36.4-46.3) fL RDW Coeff of Denys (11.5-14.5) % Plt Count (130-400) K/uL MPV (7.4-10.4) fL Immature Gran % (Auto) % Neut % (Auto) % Lymph % (Auto) % [place] % (Auto) % Eos % (Auto) % Baso % (Auto) % Neut # (Auto) (1.4-6.5) K/uL Lymph # (Auto) (1.2-3.4) K/uL [place] # (Auto) (0.11-0.59) K/uL Eos # (Auto) (0-0.5) K/uL Baso # (Auto) (0-0.2) K/uL Immature Gran # (Auto) (0.00-0.02) K/uL PT (9.0-12.0) Seconds INR (0.9-1.1) APTT (21.0-31.0) Seconds PTT Ratio POC Sodium 140 (135-144) mmol/L Sodium 138 (136-145) mmol/L POC Potassium 3.5 (3.3-5.0) mmol/L Potassium 3.6 (3.5-5.1) mmol/L POC Chloride 105 (101-112) mmol/L Chloride 105 (98-107) mmol/L Carbon Dioxide 24 (21-32) mmol/L POC Total CO2 22 L (24-31) mmol/L Anion Gap 9 (3-11) POC Anion Gap 17.0 (16-25) mmol/L POC BUN 6 L (7-18) mg/dl BUN 7 (6-23) mg/dl Creatinine 0.56 L (0.6-1.2) mg/dl POC Creatinine 0.5 L (0.6-1.3) mg/dl Est Cr Clr Drug Dosing 143.8 ml/min Est GFR ( Amer) > 150.0 ml/min Est GFR (Non-Af Amer) 129.6 ml/min BUN/Creatinine Ratio 12.5 (10-20) Glucose 78 (70-99(Fasting)) mg/dl POC Glucose (other) 81 (70-99) mg/dl Lactate 1.1 (0.4-2.0) mmol/L Calcium 9.6 (8.5-10.1) mg/dl POC Ioniz Calcium Tyrel 1.20 (1.12-1.32) mmol/l Phosphorus (2.5-4.9) mg/dl Magnesium 1.8 (1.7-2.4) mg/dl Total Bilirubin 0.4 (0.2-1.0) mg/dl AST 22 (13-39) U/L ALT 36 (7-52) U/L Alkaline Phosphatase 74 (34-104) U/L Troponin I High Sens 4.0 (0-14) pg/ml Total Protein 7.3 (6.0-8.3) gm/dl Albumin 4.5 (3.4-5.0) gm/dl Globulin 2.8 (2.5-4.0) gm/dl Albumin/Globulin Ratio 1.6 (0.9-2) HCG, Qual (Negative) Urine Color Urine Appearance (Clear) Urine pH (4.5-7.5) Ur Specific [place] (1.000-1.030) Urine Protein (Negative) Urine Glucose (UA) (Negative) Urine Ketones (Negative) Urine Blood (Negative) Urine Nitrite (Negative) Urine Bilirubin (Negative) Urine Urobilinogen (Negative) Ur Leukocyte Esterase (Negative) Urine WBC (Auto) (0-5) /hpf Urine RBC (Auto) (0-4) /hpf U Hyaline Cast (Auto) (0-5) /lpf U Epithel Cells (Auto) (0-5) /lpf Urine Bacteria (Auto) (Negative) Urine Test C.trachomatis RNA N.gonorrhoeae RNA SARS-CoV-2, RNA, NAAT (NEGATIVE) 10/10/21 10/10/21 10/10/21 Range/Units 15:59 15:59 15:46 WBC 10.53 (4.8-10.8) K/uL RBC 4.75 (4.2-5.4) M/uL Hgb 13.3 (12.0-16.0) g/dL POC Hgb (12.0-16.0) g/dl Hct 40.8 (37-47) % POC Hct (37-47) % MCV 85.9 (80-100) fL MCH 28.0 (25-34) pg MCHC 32.6 (32-36) g/dL RDW Std Deviation 45.2 (36.4-46.3) fL RDW Coeff of Denys 14.5 (11.5-14.5) % Plt Count 384 (130-400) K/uL MPV 9.0 (7.4-10.4) fL Immature Gran % (Auto) 0.3 % Neut % (Auto) 64.5 % Lymph % (Auto) 21.1 % [place] % (Auto) 5.8 % Eos % (Auto) 7.9 % Baso % (Auto) 0.4 % Neut # (Auto) 6.80 H (1.4-6.5) K/uL Lymph # (Auto) 2.22 (1.2-3.4) K/uL [place] # (Auto) 0.61 H (0.11-0.59) K/uL Eos # (Auto) 0.83 H (0-0.5) K/uL Baso # (Auto) 0.04 (0-0.2) K/uL Immature Gran # (Auto) 0.03 H (0.00-0.02) K/uL PT 10.3 (9.0-12.0) Seconds INR 1.0 (0.9-1.1) APTT 25.3 (21.0-31.0) Seconds PTT Ratio 0.9 POC Sodium (135-144) mmol/L Sodium (136-145) mmol/L POC Potassium (3.3-5.0) mmol/L Potassium (3.5-5.1) mmol/L POC Chloride (101-112) mmol/L Chloride (98-107) mmol/L Carbon Dioxide (21-32) mmol/L POC Total CO2 (24-31) mmol/L Anion Gap (3-11) POC Anion Gap (16-25) mmol/L POC BUN (7-18) mg/dl BUN (6-23) mg/dl Creatinine (0.6-1.2) mg/dl POC Creatinine (0.6-1.3) mg/dl Est Cr Clr Drug Dosing ml/min Est GFR ( Amer) ml/min Est GFR (Non-Af Amer) ml/min BUN/Creatinine Ratio (10-20) Glucose (70-99(Fasting)) mg/dl POC Glucose (other) (70-99) mg/dl Lactate (0.4-2.0) mmol/L Calcium (8.5-10.1) mg/dl POC Ioniz Calcium Tyrel (1.12-1.32) mmol/l Phosphorus (2.5-4.9) mg/dl Magnesium (1.7-2.4) mg/dl Total Bilirubin (0.2-1.0) mg/dl AST (13-39) U/L ALT (7-52) U/L Alkaline Phosphatase (34-104) U/L Troponin I High Sens (0-14) pg/ml Total Protein (6.0-8.3) gm/dl Albumin (3.4-5.0) gm/dl Globulin (2.5-4.0) gm/dl Albumin/Globulin Ratio (0.9-2) HCG, Qual (Negative) Urine Color Urine Appearance (Clear) Urine pH (4.5-7.5) Ur Specific [place] (1.000-1.030) Urine Protein (Negative) Urine Glucose (UA) (Negative) Urine Ketones (Negative) Urine Blood (Negative) Urine Nitrite (Negative) Urine Bilirubin (Negative) Urine Urobilinogen (Negative) Ur Leukocyte Esterase (Negative) Urine WBC (Auto) (0-5) /hpf Urine RBC (Auto) (0-4) /hpf U Hyaline Cast (Auto) (0-5) /lpf U Epithel Cells (Auto) (0-5) /lpf Urine Bacteria (Auto) (Negative) Urine Test Cancelled C.trachomatis RNA N.gonorrhoeae RNA SARS-CoV-2, RNA, NAAT (NEGATIVE) 10/10/21 Range/Units 15:46 WBC (4.8-10.8) K/uL RBC (4.2-5.4) M/uL Hgb (12.0-16.0) g/dL POC Hgb (12.0-16.0) g/dl Hct (37-47) % POC Hct (37-47) % MCV (80-100) fL MCH (25-34) pg MCHC (32-36) g/dL RDW Std Deviation (36.4-46.3) fL RDW Coeff of Denys (11.5-14.5) % Plt Count (130-400) K/uL MPV (7.4-10.4) fL Immature Gran % (Auto) % Neut % (Auto) % Lymph % (Auto) % [place] % (Auto) % Eos % (Auto) % Baso % (Auto) % Neut # (Auto) (1.4-6.5) K/uL Lymph # (Auto) (1.2-3.4) K/uL [place] # (Auto) (0.11-0.59) K/uL Eos # (Auto) (0-0.5) K/uL Baso # (Auto) (0-0.2) K/uL Immature Gran # (Auto) (0.00-0.02) K/uL PT (9.0-12.0) Seconds INR (0.9-1.1) APTT (21.0-31.0) Seconds PTT Ratio POC Sodium (135-144) mmol/L Sodium (136-145) mmol/L POC Potassium (3.3-5.0) mmol/L Potassium (3.5-5.1) mmol/L POC Chloride (101-112) mmol/L Chloride (98-107) mmol/L Carbon Dioxide (21-32) mmol/L POC Total CO2 (24-31) mmol/L Anion Gap (3-11) POC Anion Gap (16-25) mmol/L POC BUN (7-18) mg/dl BUN (6-23) mg/dl Creatinine (0.6-1.2) mg/dl POC Creatinine (0.6-1.3) mg/dl Est Cr Clr Drug Dosing ml/min Est GFR ( Amer) ml/min Est GFR (Non-Af Amer) ml/min BUN/Creatinine Ratio (10-20) Glucose (70-99(Fasting)) mg/dl POC Glucose (other) (70-99) mg/dl Lactate (0.4-2.0) mmol/L Calcium (8.5-10.1) mg/dl POC Ioniz Calcium Tyrel (1.12-1.32) mmol/l Phosphorus (2.5-4.9) mg/dl Magnesium (1.7-2.4) mg/dl Total Bilirubin (0.2-1.0) mg/dl AST (13-39) U/L ALT (7-52) U/L Alkaline Phosphatase (34-104) U/L Troponin I High Sens (0-14) pg/ml Total Protein (6.0-8.3) gm/dl Albumin (3.4-5.0) gm/dl Globulin (2.5-4.0) gm/dl Albumin/Globulin Ratio (0.9-2) HCG, Qual (Negative) Urine Color Yellow Urine Appearance Clear (Clear) Urine pH 6.5 (4.5-7.5) Ur Specific [place] 1.007 (1.000-1.030) Urine Protein Negative (Negative) Urine Glucose (UA) Negative (Negative) Urine Ketones Negative (Negative) Urine Blood Trace H (Negative) Urine Nitrite Negative (Negative) Urine Bilirubin Negative (Negative) Urine Urobilinogen Negative (Negative) Ur Leukocyte Esterase Trace H (Negative) Urine WBC (Auto) 1-5 (0-5) /hpf Urine RBC (Auto) 0-4 (0-4) /hpf U Hyaline Cast (Auto) 1-5 (0-5) /lpf U Epithel Cells (Auto) >30 H (0-5) /lpf Urine Bacteria (Auto) Negative (Negative) Urine Test C.trachomatis RNA N.gonorrhoeae RNA SARS-CoV-2, RNA, NAAT (NEGATIVE) PG Care Time/CCT Total # of Minutes Spent Total Time Spent with Patient: Total time spent is greater than 50% in coordination of care (as documented) at patient's floor/unit and/or counseling patient: Coding Level of Care Code 79139 Subseq Hosp Care Lvl 3 Diagnoses Pelvic abscess in female N73.9
--- NOTE | 2021-10-11 12:14 | Hospitalist Progress Note ---
Date of Service October 11, 2021 Assessment & Plan (1) H/O ovarian cystectomy: (2) Sepsis: (3) Pyosalpinx: (4) Tachycardia: Plan: Tachycardia on admission, likely secondary to developing sepsis, now patient's HR normal -Patient was admit to telemetry last evening (10/10) - [facility] consulted for hx of ovarian cystectomy (09/10/21 in [place]) and recurrent abscess - Discussed with Dr. Basurto ( at [facility])- no current indication for surgery- allowed diet at night and made NPO at midnight in the event needs for surgical procedure changes - Imaging reviewed: 1. Heterogeneous enhancement of the left adnexum with probable left adnexal/pelvic cul-de-sac multilocular abscess measuring over 3 cm. 2. Serpiginous cystic structure of the right adnexum measuring over 8 cm in greatest dimension is suggestive of a dilated fluid-filled fallopian tube. Hydrosalpinx versus pyosalpinx considered. The constellation of findings should be correlated with a follow-up pelvic ultrasound. - Lactate 1.1 initially, follow repeat - Recently readmitted at [facility] for complication of her surgery, was treated with IV Zosyn and discharged home after 4 days - then completed course of Augmentin and prednisone as outpatient (there was also concern for possible reaction to surgical glue FloSeal -please review detailed report from [facility] - here pt was started on IV abx - zosyn and vancomycin -Overnight patient had reaction to vancomycin, patient felt itchy and there was light red rash noted by RN, therefore vancomycin was stopped and patient was started on daptomycin - Follow blood cx x 2, urine culture - HR elevated on admission, now HR 89 - Given 2 L NSS in the ER, received another L fluids with LR 10/11 - this morning discussed with [facility], they recommend transfer to tertiary care center for IR drainage of pelvic abscesses. No plan for surgical intervention here at the moment. I contacted [facility], and discussed the case with SAMPLER PICKUP, Dr. Jung, who accepts the patient to her care for further evaluation and treatment. DVT ppx: -teds, heparin subq CODE: FULL code Dispo: Plan to transfer to [facility] [place] Admission and Anticipated Discharge Date Admission Date: October 10, 2021 Subjective Patient seen in follow-up of pelvic abscesses/postoperative infection Currently patient is lying in bed, in no acute distress She reports lower abdominal pain 8 out of 10, says this is slightly improved from yesterday Otherwise denies any chest pain, shortness of breath, nausea or vomiting. Patient reports having a fever of 102 Fahrenheit yesterday, she denies any fevers or chills here. Patient was admitted yesterday, started on IV antibiotics Zosyn and vancomycin. She developed reaction to vancomycin overnight, which was then stopped and patient was switched to daptomycin. Discussed with [facility]ICKUP today, that patient will be better served in a tertiary care center with IR, which can drain pelvic abscesses. No plan for surgery here. Contacted [facility], and patient was accepted to care of SAMPLER PICKUP, Dr. Jung. Review of Systems Review of Systems: All systems reviewed & are unremarkable except as noted in Subjective Physical Exam Physical Exam: General: young F awake, alert, in no apparent distress Head: Normocephalic, atraumatic ENT: PERRL, EOMI, no pharyngeal exudate, mucous membranes moist Chest: Clear to auscultation, on room air, no adventitious breath sounds Cardiac: RRR, no murmur, no JVD, normal peripheral pulses, good capillary refill Abdominal: NABS x 4 quadrants, soft, nondistended, +tender to palpation in lower abd. quadrants b/l, no rebound or guarding Extremities: Normal inspection, no peripheral edema or erythema Psych: Normal mood and affect Neuro: AAO x 3, strength intact bilaterally and rated 5/5, no motor deficits, speech is clear Results & Data Results & Data ([facility]) Vital Signs (Past 12 Hours) Vital Signs Temp Pulse Resp BP Pulse Ox 10/11/21 07:19 36.8 C 89 18 103/67 98 10/11/21 03:56 36.4 C L 92 H 20 120/78 98 Laboratory Results 10/11/21 10/11/21 10/10/21 Range/Units 06:17 06:17 22:12 WBC 6.35 (4.8-10.8) K/uL RBC 4.16 L (4.2-5.4) M/uL Hgb 11.8 L (12.0-16.0) g/dL POC Hgb (12.0-16.0) g/dl Hct 36.1 L (37-47) % POC Hct (37-47) % MCV 86.8 (80-100) fL MCH 28.4 (25-34) pg MCHC 32.7 (32-36) g/dL RDW Std Deviation 47.4 H (36.4-46.3) fL RDW Coeff of Denys 14.8 H (11.5-14.5) % Plt Count 307 (130-400) K/uL MPV 9.0 (7.4-10.4) fL Immature Gran % (Auto) % Neut % (Auto) % Lymph % (Auto) % [place] % (Auto) % Eos % (Auto) % Baso % (Auto) % Neut # (Auto) (1.4-6.5) K/uL Lymph # (Auto) (1.2-3.4) K/uL [place] # (Auto) (0.11-0.59) K/uL Eos # (Auto) (0-0.5) K/uL Baso # (Auto) (0-0.2) K/uL Immature Gran # (Auto) (0.00-0.02) K/uL PT (9.0-12.0) Seconds INR (0.9-1.1) APTT (21.0-31.0) Seconds PTT Ratio POC Sodium (135-144) mmol/L Sodium 138 (136-145) mmol/L POC Potassium (3.3-5.0) mmol/L Potassium 3.7 (3.5-5.1) mmol/L POC Chloride (101-112) mmol/L Chloride 108 H (98-107) mmol/L Carbon Dioxide 25 (21-32) mmol/L POC Total CO2 (24-31) mmol/L Anion Gap 5 (3-11) POC Anion Gap (16-25) mmol/L POC BUN (7-18) mg/dl BUN 6 (6-23) mg/dl Creatinine 0.64 (0.6-1.2) mg/dl POC Creatinine (0.6-1.3) mg/dl Est Cr Clr Drug Dosing 139.8 ml/min Est GFR ( Amer) 143.7 ml/min Est GFR (Non-Af Amer) 124.0 ml/min BUN/Creatinine Ratio 9.4 L (10-20) Glucose 90 (70-99(Fasting)) mg/dl POC Glucose (other) (70-99) mg/dl Lactate (0.4-2.0) mmol/L Calcium 8.3 L (8.5-10.1) mg/dl POC Ioniz Calcium Tyrel (1.12-1.32) mmol/l Phosphorus 3.2 (2.5-4.9) mg/dl Magnesium 1.9 (1.7-2.4) mg/dl Total Bilirubin 0.7 (0.2-1.0) mg/dl AST 17 (13-39) U/L ALT 26 (7-52) U/L Alkaline Phosphatase 56 (34-104) U/L Troponin I High Sens (0-14) pg/ml Total Protein 5.6 L D (6.0-8.3) gm/dl Albumin 3.5 (3.4-5.0) gm/dl Globulin 2.1 L (2.5-4.0) gm/dl Albumin/Globulin Ratio 1.7 (0.9-2) HCG, Qual (Negative) Urine Color Urine Appearance (Clear) Urine pH (4.5-7.5) Ur Specific [place] (1.000-1.030) Urine Protein (Negative) Urine Glucose (UA) (Negative) Urine Ketones (Negative) Urine Blood (Negative) Urine Nitrite (Negative) Urine Bilirubin (Negative) Urine Urobilinogen (Negative) Ur Leukocyte Esterase (Negative) Urine WBC (Auto) (0-5) /hpf Urine RBC (Auto) (0-4) /hpf U Hyaline Cast (Auto) (0-5) /lpf U Epithel Cells (Auto) (0-5) /lpf Urine Bacteria (Auto) (Negative) Urine Test C.trachomatis RNA Pending N.gonorrhoeae RNA Pending SARS-CoV-2, RNA, NAAT (NEGATIVE) 10/10/21 10/10/21 10/10/21 Range/Units 19:08 16:56 16:24 WBC (4.8-10.8) K/uL RBC (4.2-5.4) M/uL Hgb (12.0-16.0) g/dL POC Hgb (12.0-16.0) g/dl Hct (37-47) % POC Hct (37-47) % MCV (80-100) fL MCH (25-34) pg MCHC (32-36) g/dL RDW Std Deviation (36.4-46.3) fL RDW Coeff of Denys (11.5-14.5) % Plt Count (130-400) K/uL MPV (7.4-10.4) fL Immature Gran % (Auto) % Neut % (Auto) % Lymph % (Auto) % [place] % (Auto) % Eos % (Auto) % Baso % (Auto) % Neut # (Auto) (1.4-6.5) K/uL Lymph # (Auto) (1.2-3.4) K/uL [place] # (Auto) (0.11-0.59) K/uL Eos # (Auto) (0-0.5) K/uL Baso # (Auto) (0-0.2) K/uL Immature Gran # (Auto) (0.00-0.02) K/uL PT (9.0-12.0) Seconds INR (0.9-1.1) APTT (21.0-31.0) Seconds PTT Ratio POC Sodium (135-144) mmol/L Sodium (136-145) mmol/L POC Potassium (3.3-5.0) mmol/L Potassium (3.5-5.1) mmol/L POC Chloride (101-112) mmol/L Chloride (98-107) mmol/L Carbon Dioxide (21-32) mmol/L POC Total CO2 (24-31) mmol/L Anion Gap (3-11) POC Anion Gap (16-25) mmol/L POC BUN (7-18) mg/dl BUN (6-23) mg/dl Creatinine (0.6-1.2) mg/dl POC Creatinine (0.6-1.3) mg/dl Est Cr Clr Drug Dosing ml/min Est GFR ( Amer) ml/min Est GFR (Non-Af Amer) ml/min BUN/Creatinine Ratio (10-20) Glucose (70-99(Fasting)) mg/dl POC Glucose (other) (70-99) mg/dl Lactate 0.8 (0.4-2.0) mmol/L Calcium (8.5-10.1) mg/dl POC Ioniz Calcium Tyrel (1.12-1.32) mmol/l Phosphorus (2.5-4.9) mg/dl Magnesium (1.7-2.4) mg/dl Total Bilirubin (0.2-1.0) mg/dl AST (13-39) U/L ALT (7-52) U/L Alkaline Phosphatase (34-104) U/L Troponin I High Sens (0-14) pg/ml Total Protein (6.0-8.3) gm/dl Albumin (3.4-5.0) gm/dl Globulin (2.5-4.0) gm/dl Albumin/Globulin Ratio (0.9-2) HCG, Qual Negative (Negative) Urine Color Urine Appearance (Clear) Urine pH (4.5-7.5) Ur Specific [place] (1.000-1.030) Urine Protein (Negative) Urine Glucose (UA) (Negative) Urine Ketones (Negative) Urine Blood (Negative) Urine Nitrite (Negative) Urine Bilirubin (Negative) Urine Urobilinogen (Negative) Ur Leukocyte Esterase (Negative) Urine WBC (Auto) (0-5) /hpf Urine RBC (Auto) (0-4) /hpf U Hyaline Cast (Auto) (0-5) /lpf U Epithel Cells (Auto) (0-5) /lpf Urine Bacteria (Auto) (Negative) Urine Test C.trachomatis RNA N.gonorrhoeae RNA SARS-CoV-2, RNA, NAAT NEGATIVE (NEGATIVE) 10/10/21 10/10/21 10/10/21 Range/Units 16:16 16:15 15:59 WBC (4.8-10.8) K/uL RBC (4.2-5.4) M/uL Hgb (12.0-16.0) g/dL POC Hgb 12.9 (12.0-16.0) g/dl Hct (37-47) % POC Hct 38 (37-47) % MCV (80-100) fL MCH (25-34) pg MCHC (32-36) g/dL RDW Std Deviation (36.4-46.3) fL RDW Coeff of Denys (11.5-14.5) % Plt Count (130-400) K/uL MPV (7.4-10.4) fL Immature Gran % (Auto) % Neut % (Auto) % Lymph % (Auto) % [place] % (Auto) % Eos % (Auto) % Baso % (Auto) % Neut # (Auto) (1.4-6.5) K/uL Lymph # (Auto) (1.2-3.4) K/uL [place] # (Auto) (0.11-0.59) K/uL Eos # (Auto) (0-0.5) K/uL Baso # (Auto) (0-0.2) K/uL Immature Gran # (Auto) (0.00-0.02) K/uL PT (9.0-12.0) Seconds INR (0.9-1.1) APTT (21.0-31.0) Seconds PTT Ratio POC Sodium 140 (135-144) mmol/L Sodium 138 (136-145) mmol/L POC Potassium 3.5 (3.3-5.0) mmol/L Potassium 3.6 (3.5-5.1) mmol/L POC Chloride 105 (101-112) mmol/L Chloride 105 (98-107) mmol/L Carbon Dioxide 24 (21-32) mmol/L POC Total CO2 22 L (24-31) mmol/L Anion Gap 9 (3-11) POC Anion Gap 17.0 (16-25) mmol/L POC BUN 6 L (7-18) mg/dl BUN 7 (6-23) mg/dl Creatinine 0.56 L (0.6-1.2) mg/dl POC Creatinine 0.5 L (0.6-1.3) mg/dl Est Cr Clr Drug Dosing 143.8 ml/min Est GFR ( Amer) > 150.0 ml/min Est GFR (Non-Af Amer) 129.6 ml/min BUN/Creatinine Ratio 12.5 (10-20) Glucose 78 (70-99(Fasting)) mg/dl POC Glucose (other) 81 (70-99) mg/dl Lactate 1.1 (0.4-2.0) mmol/L Calcium 9.6 (8.5-10.1) mg/dl POC Ioniz Calcium Tyrel 1.20 (1.12-1.32) mmol/l Phosphorus (2.5-4.9) mg/dl Magnesium 1.8 (1.7-2.4) mg/dl Total Bilirubin 0.4 (0.2-1.0) mg/dl AST 22 (13-39) U/L ALT 36 (7-52) U/L Alkaline Phosphatase 74 (34-104) U/L Troponin I High Sens 4.0 (0-14) pg/ml Total Protein 7.3 (6.0-8.3) gm/dl Albumin 4.5 (3.4-5.0) gm/dl Globulin 2.8 (2.5-4.0) gm/dl Albumin/Globulin Ratio 1.6 (0.9-2) HCG, Qual (Negative) Urine Color Urine Appearance (Clear) Urine pH (4.5-7.5) Ur Specific [place] (1.000-1.030) Urine Protein (Negative) Urine Glucose (UA) (Negative) Urine Ketones (Negative) Urine Blood (Negative) Urine Nitrite (Negative) Urine Bilirubin (Negative) Urine Urobilinogen (Negative) Ur Leukocyte Esterase (Negative) Urine WBC (Auto) (0-5) /hpf Urine RBC (Auto) (0-4) /hpf U Hyaline Cast (Auto) (0-5) /lpf U Epithel Cells (Auto) (0-5) /lpf Urine Bacteria (Auto) (Negative) Urine Test C.trachomatis RNA N.gonorrhoeae RNA SARS-CoV-2, RNA, NAAT (NEGATIVE) 10/10/21 10/10/21 10/10/21 Range/Units 15:59 15:59 15:46 WBC 10.53 (4.8-10.8) K/uL RBC 4.75 (4.2-5.4) M/uL Hgb 13.3 (12.0-16.0) g/dL POC Hgb (12.0-16.0) g/dl Hct 40.8 (37-47) % POC Hct (37-47) % MCV 85.9 (80-100) fL MCH 28.0 (25-34) pg MCHC 32.6 (32-36) g/dL RDW Std Deviation 45.2 (36.4-46.3) fL RDW Coeff of Denys 14.5 (11.5-14.5) % Plt Count 384 (130-400) K/uL MPV 9.0 (7.4-10.4) fL Immature Gran % (Auto) 0.3 % Neut % (Auto) 64.5 % Lymph % (Auto) 21.1 % [place] % (Auto) 5.8 % Eos % (Auto) 7.9 % Baso % (Auto) 0.4 % Neut # (Auto) 6.80 H (1.4-6.5) K/uL Lymph # (Auto) 2.22 (1.2-3.4) K/uL [place] # (Auto) 0.61 H (0.11-0.59) K/uL Eos # (Auto) 0.83 H (0-0.5) K/uL Baso # (Auto) 0.04 (0-0.2) K/uL Immature Gran # (Auto) 0.03 H (0.00-0.02) K/uL PT 10.3 (9.0-12.0) Seconds INR 1.0 (0.9-1.1) APTT 25.3 (21.0-31.0) Seconds PTT Ratio 0.9 POC Sodium (135-144) mmol/L Sodium (136-145) mmol/L POC Potassium (3.3-5.0) mmol/L Potassium (3.5-5.1) mmol/L POC Chloride (101-112) mmol/L Chloride (98-107) mmol/L Carbon Dioxide (21-32) mmol/L POC Total CO2 (24-31) mmol/L Anion Gap (3-11) POC Anion Gap (16-25) mmol/L POC BUN (7-18) mg/dl BUN (6-23) mg/dl Creatinine (0.6-1.2) mg/dl POC Creatinine (0.6-1.3) mg/dl Est Cr Clr Drug Dosing ml/min Est GFR ( Amer) ml/min Est GFR (Non-Af Amer) ml/min BUN/Creatinine Ratio (10-20) Glucose (70-99(Fasting)) mg/dl POC Glucose (other) (70-99) mg/dl Lactate (0.4-2.0) mmol/L Calcium (8.5-10.1) mg/dl POC Ioniz Calcium Tyrel (1.12-1.32) mmol/l Phosphorus (2.5-4.9) mg/dl Magnesium (1.7-2.4) mg/dl Total Bilirubin (0.2-1.0) mg/dl AST (13-39) U/L ALT (7-52) U/L Alkaline Phosphatase (34-104) U/L Troponin I High Sens (0-14) pg/ml Total Protein (6.0-8.3) gm/dl Albumin (3.4-5.0) gm/dl Globulin (2.5-4.0) gm/dl Albumin/Globulin Ratio (0.9-2) HCG, Qual (Negative) Urine Color Urine Appearance (Clear) Urine pH (4.5-7.5) Ur Specific [place] (1.000-1.030) Urine Protein (Negative) Urine Glucose (UA) (Negative) Urine Ketones (Negative) Urine Blood (Negative) Urine Nitrite (Negative) Urine Bilirubin (Negative) Urine Urobilinogen (Negative) Ur Leukocyte Esterase (Negative) Urine WBC (Auto) (0-5) /hpf Urine RBC (Auto) (0-4) /hpf U Hyaline Cast (Auto) (0-5) /lpf U Epithel Cells (Auto) (0-5) /lpf Urine Bacteria (Auto) (Negative) Urine Test Cancelled C.trachomatis RNA N.gonorrhoeae RNA SARS-CoV-2, RNA, NAAT (NEGATIVE) 10/10/21 Range/Units 15:46 WBC (4.8-10.8) K/uL RBC (4.2-5.4) M/uL Hgb (12.0-16.0) g/dL POC Hgb (12.0-16.0) g/dl Hct (37-47) % POC Hct (37-47) % MCV (80-100) fL MCH (25-34) pg MCHC (32-36) g/dL RDW Std Deviation (36.4-46.3) fL RDW Coeff of Denys (11.5-14.5) % Plt Count (130-400) K/uL MPV (7.4-10.4) fL Immature Gran % (Auto) % Neut % (Auto) % Lymph % (Auto) % [place] % (Auto) % Eos % (Auto) % Baso % (Auto) % Neut # (Auto) (1.4-6.5) K/uL Lymph # (Auto) (1.2-3.4) K/uL [place] # (Auto) (0.11-0.59) K/uL Eos # (Auto) (0-0.5) K/uL Baso # (Auto) (0-0.2) K/uL Immature Gran # (Auto) (0.00-0.02) K/uL PT (9.0-12.0) Seconds INR (0.9-1.1) APTT (21.0-31.0) Seconds PTT Ratio POC Sodium (135-144) mmol/L Sodium (136-145) mmol/L POC Potassium (3.3-5.0) mmol/L Potassium (3.5-5.1) mmol/L POC Chloride (101-112) mmol/L Chloride (98-107) mmol/L Carbon Dioxide (21-32) mmol/L POC Total CO2 (24-31) mmol/L Anion Gap (3-11) POC Anion Gap (16-25) mmol/L POC BUN (7-18) mg/dl BUN (6-23) mg/dl Creatinine (0.6-1.2) mg/dl POC Creatinine (0.6-1.3) mg/dl Est Cr Clr Drug Dosing ml/min Est GFR ( Amer) ml/min Est GFR (Non-Af Amer) ml/min BUN/Creatinine Ratio (10-20) Glucose (70-99(Fasting)) mg/dl POC Glucose (other) (70-99) mg/dl Lactate (0.4-2.0) mmol/L Calcium (8.5-10.1) mg/dl POC Ioniz Calcium Tyrel (1.12-1.32) mmol/l Phosphorus (2.5-4.9) mg/dl Magnesium (1.7-2.4) mg/dl Total Bilirubin (0.2-1.0) mg/dl AST (13-39) U/L ALT (7-52) U/L Alkaline Phosphatase (34-104) U/L Troponin I High Sens (0-14) pg/ml Total Protein (6.0-8.3) gm/dl Albumin (3.4-5.0) gm/dl Globulin (2.5-4.0) gm/dl Albumin/Globulin Ratio (0.9-2) HCG, Qual (Negative) Urine Color Yellow Urine Appearance Clear (Clear) Urine pH 6.5 (4.5-7.5) Ur Specific [place] 1.007 (1.000-1.030) Urine Protein Negative (Negative) Urine Glucose (UA) Negative (Negative) Urine Ketones Negative (Negative) Urine Blood Trace H (Negative) Urine Nitrite Negative (Negative) Urine Bilirubin Negative (Negative) Urine Urobilinogen Negative (Negative) Ur Leukocyte Esterase Trace H (Negative) Urine WBC (Auto) 1-5 (0-5) /hpf Urine RBC (Auto) 0-4 (0-4) /hpf U Hyaline Cast (Auto) 1-5 (0-5) /lpf U Epithel Cells (Auto) >30 H (0-5) /lpf Urine Bacteria (Auto) Negative (Negative) Urine Test C.trachomatis RNA N.gonorrhoeae RNA SARS-CoV-2, RNA, NAAT (NEGATIVE) Medications Administered Current Inpatient Medications Acetaminophen (Acetaminophen 325 Mg Tab) 650 mg PO Q4H PRN PRN Reason: mild pain or fever Stop: 11/09/21 22:00 Docusate Sodium (Docusate Sodium 100 Mg Cap) 100 mg PO BID JOSUÉ Stop: 11/10/21 08:59 Last Admin: 10/11/21 09:54 Dose: 100 mg Documented by: Heparin Sodium (Porcine) (Heparin Sod 5,000 Unit/0.5 Ml Vial) 5,000 units SQ Q12 JOSUÉ Stop: 11/09/21 21:36 Last Admin: 10/11/21 09:54 Dose: 5,000 units Documented by: Piperacillin Sod/Tazobactam (Sod 3.375 gm/ Dextrose) 115 mls @ 28.75 mls/hr IV Q8H JOSUÉ; Protocol Stop: 10/20/21 21:59 Last Infusion: 10/11/21 09:30 Dose: Infused Documented by: Daptomycin 250 mg/ Syringe 5 mls @ 2.5 mls/min IV Q24H JOSUÉ; Protocol Stop: 10/22/21 05:59 Miscellaneous Information (Piperacill/Tazobac Consult Active) 1 ea N/A UD PRN PRN Reason: Consult Stop: 11/09/21 15:47 Miscellaneous Information (Daptomycin Consult Active) 1 ea N/A UD PRN PRN Reason: Consult Stop: 11/10/21 04:48 Ondansetron HCl (Ondansetron Inj 2 Mg/Ml 2 Ml Vial) 4 mg IV Q4H PRN PRN Reason: Nausea And Vomiting Stop: 11/09/21 21:36 Oxycodone/Acetaminophen (Oxycodone/Acetaminophen 5mg/325mg Tab) 1 tab PO Q4H PRN PRN Reason: severe pain Stop: 10/24/21 22:00 Polyethylene Glycol (Polyethylene (Miralax) 17 Gm Pack) 17 gm PO DAILY PRN PRN Reason: Constipation Stop: 11/09/21 22:00 (1) Sepsis Sepsis acute organ dysfunction status: unspecified Sepsis type: sepsis due to unspecified organism Qualified Code(s): A41.9 - Sepsis, unspecified organism
--- NOTE | 2021-10-11 12:42 | Discharge Summary ---
Date of Service October 11, 2021 Admission HPI Per Admitting Provider This is a 26 yo F, , without significant PMHx other than left ovarian cystectomy which was done emergently on September 10 due to presentation with abdominal pain and CT findings on abdomen. She was admitted for several days at [facility] where she was discharged home. On September 17 she represented to the [place] ER due to worsening abdominal pain, nausea, vomiting, fever and chills and reports that she was admitted for another 4 to 5 days and describes what may possibly have been a bowel obstruction. Upon discharge she was sent home on 14 days of Augmentin 875 twice daily, prednisone taper, and Protonix which she finished on October 06. At that point she was told it was "normal" to have an abscess, and feels that she did not receive the best care. Over the past 4 days she has experienced worsening abdominal pain, lethargy, poor appetite, last bowel movement was 2 days ago, and fever of 102. She was working earlier today at [employer] and reports elevated blood pressure and fever, therefore came to the [facility] ER. Her pain is fairly well controlled at present if Tylenol alone, but is difficult for her to sit up independently in bed. She feels the pain is worse in her right side compared to her left side of the abdomen. Currently she does not have a fever. Her boyfriend is present at bedside and supports the history. She lives with her boyfriend, and 3 children, ages 6, 4 and 2. The mother of the children does not live within the home and is only allowed scheduled court visits. Pt is , is currently sexually active and does not use any control. Negative screen on admission. No smoking or alcohol use. Admission Exam Per Admitting Provider General: awake, alert, no apparent distress Head: Normocephalic, atraumatic ENT: PERRL, EOMI, no pharyngeal exudate, mucous membranes moist Chest: Clear to auscultation, on room air, no adventitious breath sounds Cardiac: +Sinus tachycardia with HR in 110s at bedside, no murmur, no JVD, normal peripheral pulses, good capillary refill Abdominal: NABS x 4 quadrants, soft, nondistended, +tender to palpation in RLQ moreso than LLQ to deep palpation, no rebound or guarding Extremities: Normal inspection, no peripheral edema or erythema, calfs nontender to palpation Psych: Normal mood and affect Neuro: AAO x 3, strength intact bilaterally and rated 5/5, no motor deficits, speech is clear, no peripheral sensory deficits Principal Diagnosis Pelvic abscesses Post-op infection Likely developing sepsis Discharge Exam General: young F awake, alert, in no apparent distress Head: Normocephalic, atraumatic ENT: PERRL, EOMI, no pharyngeal exudate, mucous membranes moist Chest: Clear to auscultation, on room air, no adventitious breath sounds Cardiac: RRR, no murmur, no JVD, normal peripheral pulses, good capillary refill Abdominal: NABS x 4 quadrants, soft, nondistended, +tender to palpation in lower abd. quadrants b/l, no rebound or guarding Extremities: Normal inspection, no peripheral edema or erythema Psych: Normal mood and affect Neuro: AAO x 3, strength intact bilaterally and rated 5/5, no motor deficits, speech is clear Discharge Data Allergies Allergy/AdvReac Type Severity Reaction Status Date / Time latex Allergy Intermediate Rash Verified 10/10/21 16:24 vancomycin Allergy Mild pruritus, Verified 10/11/21 04:45 flushing SURGICAL GLUE Allergy Intermediate RASH, Uncoded 10/10/21 16:24 BLISTERED SKIN Consultations 10/10/21 18:11 ED Decision to Admit Stat 10/10/21 18:17 ED Decision to Admit Stat 10/10/21 18:54 Consult Gynecology Routine 10/10/21 19:36 Consult Health Information Management Stat Ordered Studies 10/10/21 15:31 CT abd pelvis IV con only Stat FINDINGS: Uterus measures 8.2 x 3 x 3.8 cm. Endometrium measures 4 mm in thickness. Normal-appearing right ovary is not identified. Note is made of a 7.2 x 5.7 x 5.3 cm cystic focus within the right adnexa which corresponds to the finding on CT performed earlier today. This could reflect a dilated right fallopian tube or septated right ovarian cyst. The largest component measures 5.3 cm. Normal-appearing left ovary is not visualized. Differentiation between the left ovary and possible abscess is difficult on this exam. The left ovary measures approximately 4.2 x 2.7 x 3 cm. Adjacent complex focus is noted which favors a multiloculated abscess with the largest component measuring 3 cm. IMPRESSION: 1. Heterogeneous enhancement of the left adnexum with probable left adnexal/pelvic cul-de-sac multilocular abscess measuring over 3 cm. 2. Serpiginous cystic structure of the right adnexum measuring over 8 cm in greatest dimension is suggestive of a dilated fluid-filled fallopian tube. Hydrosalpinx versus pyosalpinx considered. The constellation of findings should be correlated with a follow-up pelvic ultrasound. 3. No bowel obstruction or pneumoperitoneum. 4. Noninflamed appendix. 10/10/21 18:16 US pelvic complete Stat US transvaginal Stat FINDINGS: Uterus measures 8.2 x 3 x 3.8 cm. Endometrium measures 4 mm in thickness. Normal-appearing right ovary is not identified. Note is made of a 7.2 x 5.7 x 5.3 cm cystic focus within the right adnexa which corresponds to the finding on CT performed earlier today. This could reflect a dilated right fallopian tube or septated right ovarian cyst. The largest component measures 5.3 cm. Normal-appearing left ovary is not visualized. Differentiation between the left ovary and possible abscess is difficult on this exam. The left ovary measures approximately 4.2 x 2.7 x 3 cm. Adjacent complex focus is noted which favors a multiloculated abscess with the largest component measuring 3 cm. IMPRESSION: 1. Complex hypoechoic abnormality within the left adnexa. Differentiation between the left ovary and possible abscess is difficult on this exam and better depicted on CT performed earlier today. The findings favor a multiloculated left adnexal abscess, measuring approximately 3 cm. Short-term sonographic follow-up is recommended. 2. 7.2 x 5.7 x 5.3 cm cystic focus within the right adnexa. This could reflect a dilated right fallopian tube or septated right ovarian cyst. Hospital Course (1) H/O ovarian cystectomy: (2) Sepsis: (3) Pyosalpinx: (4) Tachycardia: Tachycardia on admission, likely secondary to developing sepsis, now patient's HR normal -Patient was admit to telemetry last evening (10/10) - [employer] consulted for hx of ovarian cystectomy (09/10/21 in [place]) and recurrent abscess - Discussed with Dr. Basurto ( at [facility])- no current indication for surgery- allowed diet at night and made NPO at midnight in the event needs for surgical procedure changes - Imaging reviewed: 1. Heterogeneous enhancement of the left adnexum with probable left adnexal/pelvic cul-de-sac multilocular abscess measuring over 3 cm. 2. Serpiginous cystic structure of the right adnexum measuring over 8 cm in greatest dimension is suggestive of a dilated fluid-filled fallopian tube. Hydrosalpinx versus pyosalpinx considered. The constellation of findings should be correlated with a follow-up pelvic ultrasound. - Lactate 1.1 initially, follow repeat - Recently readmitted at [facility] for complication of her surgery, was treated with IV Zosyn and discharged home after 4 days - then completed course of Augmentin and prednisone as outpatient (there was also concern for possible reaction to surgical glue FloSeal -please review detailed report from [employer] note) - here pt was started on IV abx - zosyn and vancomycin -Overnight patient had a reaction to vancomycin, patient felt itchy and there was light red rash noted by RN, therefore vancomycin was stopped and patient was started on daptomycin - Follow blood cx x 2, urine culture - HR elevated on admission, now HR 89 - Given 2 L NSS in the ER, received another L fluids with LR 10/11 - this morning discussed with [employer], they recommend transfer to tertiary care center for IR drainage of pelvic abscesses. No plan for surgical intervention here at the moment. I contacted [facility], and discussed the case with [employer], Dr. Jung, who accepts the patient to her care for further evaluation and treatment. DVT ppx: -teds, heparin subq CODE: FULL code Dispo: Plan to transfer to [facility] [place] Total Time Total Time Spent Total Time Spent (In Minutes): 40 Discharge Plan Discharge Items Patient Disposition: Transfer Acute Care Hospital Reason For Visit: SEPSIS, ABSCESS S/P OVARIAN CYSTECTOMY Discharge Diagnosis: Pelvic abscesses Post-op infection Likely developing sepsis Activity: Per Instructions section Non-emergency contact: Specialist Call non-emergency contact if: you have any medication questions and your symptoms worsen Follow-up/Referrals: Nilson Marie M.D. [Primary Care Provider] - Diet: Clear liquid Addtl Attending Provider Instructions: Patient accepted to [facility], under [employer] care, Dr. Jung. Patient to be transferred secondary to having postoperative infection/pelvic abscesses, to be likely drained by IR. For now continue IV antibiotics, Zosyn and daptomycin. Pending Studies at Discharge: Yes Studies:: C. trachomatis RNA N. gonorrhea RNA Stand-Alone Forms: [facility] Skilled Items Patient informed of condition?: Yes DNR: No Discharge Level of Care: Other Communicable Disease: No Discharge Prognosis: Other Lines: Peripheral IV Urinary Catheter: No Medications and DC Order Prescriptions: Continued acetaminophen [Tylenol Extra Strength] 500 mg Tablet 1,000 mg PO DIRECTED PRN (Reason: Pain) RF: 0 Discharge Orders: Discharge Order (Routine); Ordered 10/11/21 Ordered By: Hemanth Romero Admission Data Admit Date/Time: 10/10/21 18:54 Attending Provider: Hemanth Romero Admit Provider: Ashley Preston Primary Care Provider: Nilson Marie Other Providers: Eun Basurto ; Ashley Preston
[2021-10-11] MEDS: ACETAMINOPHEN 325 MG TAB PO PRN ×2 (14:01→20:28)
[2021-10-12] MEDS ORDERED: DAPTOmycin 250 MG in SYRINGE 0 ML IV SCH (06:00)
[2021-10-12 08:39] LABS: Chlamydia Trach RNA NOT DETECTED (NOT DETECTED); GC (Neis gonorrhoeae) RNA NOT DETECTED (NOT DETECTED)
== END 2021-10-11 20:45 | disposition short-term general hospital (02) | DRG 863 ==
LOC: ED 15:09 → 2S 18:54 → SUATTDRO 18:54 → 2S 20:01